=== PATIENT | female | born 1945 | race Caucasian/White ===

== ENCOUNTER 2024-04-02 09:46 | Inpatient (IN) | payer MEDICARE, SELFPAY ==
[2024-04-02] VITALS (32 sets, daily range): BP systolic 119–199; BP diastolic 57–141; PULSE 49–104; RESP 12–21; TEMP 35.2–37.7; O2SAT 92–100; BMI 26.4; BMI 25.4
--- NOTE | 2024-04-02 10:02 | CT_ITS ---
EXAM: CT HEAD WITHOUT INTRAVENOUS CONTRAST CLINICAL INDICATION: unresponsive TECHNIQUE: Multiple axial images were obtained of the head without intravenous contrast. This CT exam was performed using one or more of the following dose reduction techniques: automated exposure control, adjustment of the mA and/or kV according to patient size, and/or use of iterative reconstruction technique. COMPARISON: No relevant prior studies available. FINDINGS: BRAIN AND EXTRA-AXIAL SPACES: No hemorrhage or mass effect. No acute ischemia. Areas of diminished white matter density noted within both cerebral hemispheres suggestive of chronic microvascular change. Prominence of the cortical sulci and ventricles related to volume loss change. Basal cisterns are patent. BONES/JOINTS: Normal calvarium. SINUSES: No acute sinusitis. MASTOID AIR CELLS: Normal. Clear. CT/Brain/Head without Contrast IMPRESSION: 1. No acute intracranial abnormality. 2. Senescent changes. Electronically Signed: Kurtis Jones MD at 12:03 EST ,
--- NOTE | 2024-04-02 10:02 | EKG12_ITS ---
Test Reason : UNRESP Blood Pressure : */* mmHG Vent. Rate : 65 BPM Atrial Rate : 65 BPM P-R Int : 196 ms QRS Dur : 90 ms QT Int : 494 ms P-R-T Axes : 115 46 29 degrees QTcB Int : 513 ms Sinus rhythm with Premature supraventricular complexes Nonspecific ST and T wave abnormality Prolonged QT Abnormal ECG Confirmed by HAKAN MCFADDEN, PEDRO ([id number]), film editor BETHANY EGAN ([id number]) on 04/04/2024 9:39:58 AM Referred By: Confirmed By: PEDRO MCCLENDON MD
[2024-04-02 10:10] LABS: Allen Test Positive; Base Excess 7 mmol/L (-2 to +2); Bicarbonate 30.1 mmol/L (22-26); Blood Gas Specimen Type ART; Mode Not entered; O2 Delivery Device Cannula; PO2 99 mmHG (75-100); SITE L Radial; SO2 98 % (95-99); Total Carbon Dioxide 31 mmol/L; pCO2 40.6 mmHg (35-45); pH 7.48 (7.35-7.45)
[2024-04-02] MEDS: Rocuronium Bromide 50 MG/5 ML Vial IV (10:13)
[2024-04-02] MEDS: Propofol 10MG/Ml 1,000 MG/100 ML Bottle 4.5 MG CONT INF (10:13)
[2024-04-02] MEDS: Etomidate 20 MG/10 ML Vial IV (10:13)
[2024-04-02 10:32] LABS: Absolute Lymphocyte Count 0.74 X10^3/uL (0.83-4.51); Absolute Neutrophil Count 2.4 X10^3/uL (2.0-7.7); Basophil% 2.2 % (0-1); Eosinophil# 1.05 X10^3/uL; Eosinophils% 22.6 % (0-5); Hematocrit 37.9 % (37-47); Hemoglobin 11.7 g/dL (12.0-15.0); Lymphocyte # 0.74 X10^3/ul (0.83-4.51); Lymphocyte % 15.9 % (19-41); Mean Corp Hgb Conc 30.9 g/dL (32-36); Mean Corpuscular Hgb 27.1 pg (27.0-32.0); Mean Corpuscular Volume 87.9 fL (81-99); Mean Platelet Vol. 12.3 fl (6.2-12.0); Monocyte# 0.26 X10^3/uL; Monocyte% 5.6 % (0-10); NRBC Flagged by Analyzer 0 % (0-5); Neutrophil # 2.44 X10^3/uL (2.7-7.7); Neutrophil % 52.6 % (47-70); POSITIVE COUNT YES; Platelet Count 76 K/mm3 (150-450); RBC Distribution Width CV 17.8 % (11.6-14.6); RBC Distribution Width SD 56.8 fl (35.1-43.9); Red Blood Count 4.31 M/mm3 (4.2-5.4); White Blood Count 4.6 K/mm3 (4.4-11.0)
[2024-04-02 10:34] LABS: International Normalized Ratio 1.1; Prothrombin Time (Protime)PT. 13.7 SECONDS (11.7-14.9)
[2024-04-02 10:35] LABS: Partial Thromboplast Time 42.2 Seconds (24.1-36.2)
--- NOTE | 2024-04-02 10:37 | RAD_ITS ---
EXAM: XR CHEST, 1 VIEW CLINICAL INDICATION: intubation TECHNIQUE: Frontal view of the chest. COMPARISON: No relevant prior studies available. FINDINGS: LUNGS AND PLEURAL SPACES: Central pulmonary densities which may represent pneumonia or pulmonary edema. Atelectatic changes of the left lower lobe. Question small bilateral pleural effusions. HEART: Normal heart size. MEDIASTINUM: No mediastinal or hilar mass. BONES/JOINTS: No acute abnormality. TUBES, LINES AND DEVICES: The endotracheal tube (ETT) is in satisfactory position with tip 2.0 cm above the flora. Dialysis catheter extends to the cavoatrial junction. Enteric tube extends into the stomach. RAD/Chest 1 View (Portable) IMPRESSION: Bilateral pulmonary opacities consistent with pneumonia and/or pulmonary edema. Electronically Signed: Kurtis Jones MD at 11:15 EST ,
[2024-04-02 10:40] LABS: Bacteria 0 SEEN /hpf (None Seen); Mucous, Urine 0 SEEN /hpf (<or=2+); Squamous Epithelial Cells - UA 0 SEEN /hpf (5-10); White Blood Cells 0 SEEN /hpf (0-5)
--- NOTE | 2024-04-02 10:42 | EX.ED.DYSGE1 ---
HPI History of Present Illness Chief Complaint: Unresponsive Informant: EMS and SNF Narrative Narrative: 78-year-old female presenting to the emergency room from SNF chief complaint of being unresponsive. group home reports that the patient is a dialysis patient. She is currently being treated for C. difficile infection with vancomycin. Patient was reportedly unresponsive when they found her this morning. EMS notes that she is withdraws from pain. They note some abdominal breathing. No reported fevers. There is no report of missed dialysis. After disposition and workup in the emergency department family arrives and tells me that she has seemed to be more confused this week. She is believing that she was being taken out of the long term at states that that was not the case that she has not been participating with physical therapy. They state that she has been admitted several times to [facility] for fever and hypertension after dialysis treatments. They state that this is where she contracted C. difficile due to the antibiotics. They tell me that she is a DNR not a full code. However the order from the long term and the paperwork that came with her clearly state full code. PFSH PFS Home Medications ?Medication ?Instructions ?Recorded ?Last Taken ?Type atorvastatin 20 mg tablet 20 mg PO DAILY CHOLESTEROL 04/02/24 04/01/24 History carvedilol 6.25 mg tablet 6.25 mg PO BID HYPERTENSION 04/02/24 04/02/24 History cetirizine 10 mg tablet (24Hour 10 mg PO DAILY ALLERGIES 04/02/24 04/02/24 History Allergy) famotidine 20 mg tablet 20 mg PO BID GERD 04/02/24 04/02/24 History fluticasone propionate 50 2 spray intranasal DAILY PRN 04/02/24 04/02/24 History mcg/actuation nasal allergy symptoms spray,suspension (24 Hour Allergy Relief) gabapentin 100 mg capsule 200 mg PO TID NEUROPATHY 04/02/24 04/02/24 History hydralazine 50 mg tablet 50 mg PO TID HYPERTENSION 04/02/24 04/02/24 History vancomycin 125 mg capsule 125 mg PO Q6H C DIFF 04/02/24 04/02/24 History (Vancocin) vitamin B complex-vitamin C-folic 1 tab PO DAILY SUPPLEMENT 04/02/24 04/02/24 History acid 0.8 mg tablet (Dialyvite 800) Allergy/AdvReac Type Severity Reaction Status Date / Time amlodipine Allergy Unknown PT UNABLE Verified 04/02/24 09:49 TO RESPOND-NEEDS F/U Social History Smoking Status: Unknown if ever smoked ROS ROS ED Review of Systems ROS Unobtainable: due to mental status EXAM Physical Exam Const Vital Signs: 04/02/24 09:48 04/02/24 09:48 04/02/24 09:55 Temperature 95.3 F L 96.2 F L Temperature Source Temporal Core Pulse Rate 56 L 104 H Respiratory Rate 21 H 14 Respiratory Effort Labored Accessory Muscle Use Respiratory Pattern Tachypnea Blood Pressure 186/141 H 192/89 H Blood Pressure Mean 156 123 Pulse Ox 100 99 Oxygen Delivery Method Nasal Cannula Mechanical Ventilator Oxygen Flow Rate (L/min) 4 Fraction of Inspired Oxygen (FIO2) 04/02/24 10:02 04/02/24 10:13 04/02/24 10:48 Temperature Temperature Source Pulse Rate 71 64 Respiratory Rate 14 16 Respiratory Effort Respiratory Pattern Blood Pressure 199/105 H Blood Pressure Mean 136 Pulse Ox 99 96 Oxygen Delivery Method Nasal Cannula Mechanical Ventilator Oxygen Flow Rate (L/min) 4 Fraction of Inspired Oxygen (FIO2) 35 04/02/24 10:55 04/02/24 11:00 04/02/24 11:00 Temperature 96.4 F L 96.1 F L Temperature Source Core Core Pulse Rate 56 L 55 L 61 Respiratory Rate 16 16 16 Respiratory Effort Respiratory Pattern Blood Pressure 199/105 H 175/73 H 175/73 H Blood Pressure Mean 136 107 107 Pulse Ox 96 96 96 Oxygen Delivery Method Mechanical Ventilator Mechanical Ventilator Mechanical Ventilator Oxygen Flow Rate (L/min) Fraction of Inspired Oxygen (FIO2) 04/02/24 11:31 04/02/24 12:00 04/02/24 12:15 Temperature 96.2 F L Temperature Source Core Pulse Rate 67 61 Respiratory Rate 15 16 Respiratory Effort Respiratory Pattern Blood Pressure 161/92 H 161/92 H Blood Pressure Mean 115 115 Pulse Ox 95 92 Oxygen Delivery Method Mechanical Ventilator Oxygen Flow Rate (L/min) Fraction of Inspired Oxygen (FIO2) 25 04/02/24 12:15 Temperature Temperature Source Pulse Rate Respiratory Rate Respiratory Effort Respiratory Pattern Blood Pressure Blood Pressure Mean Pulse Ox Oxygen Delivery Method Oxygen Flow Rate (L/min) Fraction of Inspired Oxygen (FIO2) 35 Positive well nourished and well developed General Appearance ED: well developed and NAD HEENT Reports normocephalic, head/scalp atraumatic and moist mucous membranes Eyes PERRL Eyes Narrative: Pupils are 4 mm reactive to light bilateral Neck no lymphadenopathy, supple and no JVD Chest Wall Chest Narrative: Dialysis port to the right chest Resp clear to auscultation bilaterally Resp Narrative: Patient seems to be using the abdominal muscles to breathe. However she does not appear significantly tachypneic and is not hypoxic on her chronic nasal cannula. Cardio regular rate, regular rhythm and no murmurs GI normal to inspection, nondistended, normoactive bowel sounds and non-tender Palpation: soft Back/Spine no CVA tenderness and normal ROM Extremity normal to inspection General Extremety ED: Negative for edema General Extremity: Negative for edema Neuro Neuro Narrative: Patient withdraws to sternal rub. No response to voice or light touch. Her hands seem to be moving rhythmically with the continuous degree of dorsiflexion of the feet and plantarflexion of the toes. However I would not characterize it is definitive seizure activity. I do not see any other signs of seizure. The hands appear to have a slight flexion rhythm to them. They are not rigid. There is minimal but present gag reflex. Psych Psych Narrative: Unable to assess Skin no rashes or lesions noted and no wounds MDM MDM MDM Narrative Medical decision making narrative: Differential diagnosis includes but not limited to intracranial hemorrhage stroke press sepsis uremia acid-base disturbance dehydration electrolyte abnormality acute coronary syndrome press brainstem infarct ABG was obtained which shows a pH of 7.478 pCO2 40.6 PaO2 98.5 HCO3 30.1. This was preintubation. Accu-Chek of 112. Patient underwent rapid sequence intubation using etomidate and rocuronium. A endotracheal tube was placed on the first attempt without any difficulty secured at about 24 cm. Nursing had difficulty placing OG tube. I was able to successfully pass it without difficulty and secured into place. Auscultation confirms placement of both tubes. My independent interpretation of the plain films of the chest is adequate placement of endotracheal tube and OG tube. There is a fullness of the hilum bilaterally. Possible small left pleural effusion. Urinalysis shows no acute infection. She is making small amounts of urine. White count 4.6 hemoglobin 11.7 platelet count of 76 coags showed a PTT of 42.2 potassium is 3 sodium 135 BUN 24 creatinine 3.82 glucose 122 LFTs within normal limits Patient was placed on propofol drip postintubation. Her blood pressures continued to be high and labetalol was ordered. CT of the brain demonstrates no acute findings. CT of the chest demonstrates some pulmonary edema pleural effusion. The endotracheal tube has migrated and we will pull back. My independent interpretation of the repeat chest x-ray is adequate positioning of the endotracheal tube and OG. I am no longer seeing the feet and hand movements that we saw when she first came in. Her blood pressure is down. I am not seeing an obvious cause for the patient's symptomology of altered mental status with significant hypertension. Plan of care will be admission into hospital. Does not appear that she needs emergent dialysis. History & Record Review Discussion w/independent historian: EMS personnel and Other (SNF) Lab Data Attestation: I reviewed the patient's lab results. Labs: Laboratory Results - last 24 hr 04/02/24 04/02/24 04/02/24 09:54 10:12 10:30 WBC 4.6 RBC 4.31 Hgb 11.7 L Hct 37.9 MCV 87.9 MCH 27.1 MCHC 30.9 L RDW Std Deviation 56.8 H RDW Coeff of Mindy 17.8 H Plt Count 76 L MPV 12.3 H Immature Gran % (Auto) 1.100 H Neut % (Auto) 52.6 Lymph % (Auto) 15.9 L [place] % (Auto) 5.6 Eos % (Auto) 22.6 H Baso % (Auto) 2.2 H Absolute Neuts (auto) 2.4 Absolute Lymphs (auto) 0.74 L Nucleated RBC % 0 Differential Comment SCANNED PT 13.7 INR 1.1 APTT 42.2 H Sodium 135 L Potassium 3.0 L Chloride 98 Carbon Dioxide 30.0 Anion Gap 8 BUN 24 H Creatinine 3.82 H Estim Creat Clear Calc 12.51 Est GFR (MDRD) Af Amer 15 L Est GFR (MDRD) Non-Af 12 L BUN/Creatinine Ratio 6.3 L Glucose 122 H Lactic Acid 1.1 Calcium 9.7 Total Bilirubin 0.50 Direct Bilirubin 0.20 AST 24 ALT 16 Alkaline Phosphatase 73 Total Creatine Kinase 16 L Troponin I High Sens 23 Total Protein 8.0 Albumin 2.8 L Globulin 5.2 H Triglycerides 180 Urine Color Yellow Urine Clarity Clear Urine pH 8.0 Ur Specific [place] 1.015 Urine Protein 100 H Urine Glucose (UA) Normal Urine Ketones Negative Urine Occult Blood 250 H Urine Nitrite Negative Urine Bilirubin Negative Urine Urobilinogen Normal Ur Leukocyte Esterase Negative Urine RBC 25-50 SEEN Urine WBC 0 SEEN Ur Squamous Epith Cells 0 SEEN Urine Bacteria 0 SEEN Urine Mucus 0 SEEN POC Glucose 112 H ABG Data ABG results: ABG 04/02/24 10:06 Specimen Type ART Sample Site L Radial pH 7.48 H Bicarbonate Actual 30.1 H Total CO2 31 Base Excess 7 H O2 Saturation 98 O2 % 4.0 ABG pCO2 40.6 ABG pO2 99 Phillip Test Positive O2 Delivery Device Cannula Vent Mode Not entered Radiography Diagnostic Testing: Clinical Impression(s) from Imaging Studies Brain CT 04/02/24 10:02 IMPRESSION: 1. No acute intracranial abnormality. 2. Senescent changes. Electronically Signed: Kurtis Jones MD at 12:03 EST , Chest X-Ray 04/02/24 10:37 IMPRESSION: Bilateral pulmonary opacities consistent with pneumonia and/or pulmonary edema. Electronically Signed: Kurtis Jones MD at 11:15 EST , Chest CT 04/02/24 10:46 IMPRESSION: 1. CHF with pulmonary edema. 2. Malposition of the endotracheal tube. Electronically Signed: Kurtis Jones MD at 12:07 EST , ADDENDUM: 04/02/24 1222 IMPRESSION: 1. CHF with pulmonary edema. 2. Malposition of the endotracheal tube. N.B. : The above Results were Read Back by Kurtis Jones MD to Isaias Wallis, , , and understanding confirmed on 04/02/2024 12:15:26 (ET). Electronically Signed: Kurtis Jones MD at 12:07 EST , EKG Initial EKG: Attestation: I personally reviewed and interpreted this EKG as follows: Comments: Sinus rhythm ventricular rate of 65 bpm Management Discussion w/another healthcare provider: Hospitalist and Radiologist (Dr. Allen) Critical Care Time Critical Care Time: Yes Critical care time (excluding procedures): 30-74 minutes (35 min), Including time spent:, Discussing w/Patient &/or Family/Event Marketing Coordinator, Discussing w/Consultants, Arranging Admission or Transfer and Performing Direct Patient Care at Bedside Discharge Plan Triage Chief Complaint: Unresponsive ED Provider: Isaias Wallis Dx/Rx/DC Orders Primary Care Provider: Alex Avila
--- NOTE | 2024-04-02 10:46 | CT_ITS ---
We are attempting to reach an attending provider to discuss findings. An addendum with communication details will be sent when the communication is complete. EXAM: CT CHEST WITHOUT INTRAVENOUS CONTRAST CLINICAL INDICATION: abnormal chest xray TECHNIQUE: Helically acquired images were obtained of the chest without intravenous contrast. This CT exam was performed using one or more of the following dose reduction techniques: automated exposure control, adjustment of the mA and/or kV according to patient size, and/or use of iterative reconstruction technique. COMPARISON: No relevant prior studies available. FINDINGS: LUNGS AND PLEURAL SPACES: Diffuse interstitial edema. Small bilateral pleural effusions associated with compression atelectasis of the lower lobes. No mass. No pneumothorax. HEART: Mild cardiomegaly. Small moderate sized pericardial effusion. MEDIASTINUM: Normal. No mediastinal or hilar adenopathy. Esophagus is unremarkable. No hiatal hernia. BONES/JOINTS: No suspicious lytic or blastic abnormality. VASCULATURE: Normal. Thoracic aorta is non-dilated. STOMACH AND BOWEL: Enteric stomach. TUBES, LINES AND DEVICES: Tip of the ET tube extends into the proximal portion of the right main bronchus and should be withdrawn [address]/Chest without Contrast IMPRESSION: 1. CHF with pulmonary edema. 2. Malposition of the endotracheal tube. Electronically Signed: Kurtis Jones MD at 12:07 EST ,
--- NOTE | 2024-04-02 10:46 | CM.ED ---
Social Work: Unsuccessful phone contact with patient's daughters Blanka Skelton and Evelin Skelton . fiber glass worker left a message with her name and number and requested a return call. Sarah Tony, IRRIGATING PUMP OPERATOR, RADIOLOGY SCHEDULER
[2024-04-02 10:49] LABS: AST(SGOT) 24 U/L (15-37); Alanine Aminotransfer ALT/SGPT 16 U/L (13-56); Albumin, Serum 2.8 g/dL (3.2-5.0); Alkaline Phosphatase 73 U/L (45-117); Anion Gap 8 (5-15); BUN 24 mg/dL (7-18); BUN/Creat Ratio 6.3 RATIO (10-20); Calcium,Total 9.7 mg/dL (8.5-10.1); Chloride 98 mmol/L (98-107); Creatinine, Serum 3.82 mg/dL (0.55-1.02); EST Glomerular Filtration Rate 12 mL/min (>60); Est Glom Filt Rate - Afr Amer 15 mL/min (>60); Estimated Creatinine Clearance 12.51 ml/min; Globulin 5.2 g/dL (2.2-4.2); Glucose 122 mg/dL (74-106); Sodium Level 135 mmol/L (136-145); Troponin-I HS 23 pg/mL (3.0-54.0)
[2024-04-02 10:50] LABS: Lactic Acid 1.1 mmol/L (0.4-1.9)
[2024-04-02 10:51] LABS: Color, Urine Yellow (Yellow); Glucose, Dipstick Normal (Normal); Ketone-Dipstick Negative (Negative); Leukocyte Esterase-Dipstick Negative /ul (Negative); Nitrite-Dipstick Negative (Negative); Occult Blood-Urine 250 /ul (Negative); Protein-Dipstick 100 mg/dl (Negative); Specific Gravity, Urine 1.015 (1.002-1.030); Urine Bilirubin Dipstick Negative (Negative); Urine Clarity Clear (Clear); Urine Urobilinogen Normal (Normal)
[2024-04-02 10:53] LABS: Differential Indicated SCAN CRITERIA MET
[2024-04-02 10:54] LABS: Differential Comment SCANNED
[2024-04-02 10:56] LABS: CPK Total, Creatine Kinase 16 U/L (26-192); Triglycerides 180 mg/dL
[2024-04-02 10:57] LABS: Red Blood Cells-Urine 25-50 SEEN /hpf (0-5)
--- NOTE | 2024-04-02 10:57 | CM.ED ---
Patient's daughter Blanka returned social and political studies professor's phone call. general foundry worker told her that she wanted to make sure that she was aware that her mother was brought to the hospital and she stated she was notified however didn't know what was going on. general foundry worker did not provide any details but did ask the daughter to come to the ED which she stated she would. Blanka indicated she was at an 11:00 appointment and would come to the hospital right after. Sarah Tony, BEER MERCHANT, PLASTER BLOCK LAYER
[2024-04-02 11:03] LABS: Bedside Glucose 112 mg/dL (74-106)
[2024-04-02] MEDS: Labetalol (Prefilled) 20 MG/4 ML Vial IV ×2 (11:03→16:12)
--- NOTE | 2024-04-02 12:42 | RAD_ITS ---
EXAM: XR CHEST, 1 VIEW CLINICAL INDICATION: OG tube placement/ETT readjustment TECHNIQUE: Frontal view of the chest. COMPARISON: No relevant prior studies available. FINDINGS: LUNGS AND PLEURAL SPACES: Persistent central pulmonary opacification noted bilaterally as well as consolidation/atelectasis of the left lower lobe. Suspect small bilateral pleural effusions. HEART: Normal heart size. MEDIASTINUM: No mediastinal or hilar mass. BONES/JOINTS: No acute abnormality. TUBES, LINES AND DEVICES: The endotracheal tube (ETT) is in satisfactory position with tip 2.5 cm above the flora. Right internal jugular central venous catheter tip in the distal superior vena cava. Enteric tube extends into the stomach. RAD/Chest 1 View IMPRESSION: Persistent bilateral pneumonia and/or pulmonary edema. Persistent left lower lobe consolidation/atelectasis. Electronically Signed: Kurtis Jones MD at 13:25 EST ,
--- NOTE | 2024-04-02 12:44 | PCM.HP.STD ---
HPI - General General Date of Admission: 04/02/24 Date of Service: 04/02/24 Chief Complaint: Was found unresponsive in snf HPI Narrative STEFFANY HELMS, is a 78 F was brought by EMS for being unresponsive in snf. As per the daughter who is present in ED, she said snf informed that she is unresponsive and is being taken to the [facility] ED. In ED, her BP was high 199/105, MAP 136, heart rate 50s, 99 on 4 L of oxygen. She was intubated as she could not protect her airways. She was tachypneic in ED before intubation As per the daughter, she has been confused for last couple days in snf. She was saying that she wants to go home with some intermittent hallucinations snf. She gets fever after dialysis on Thursday and Thursday. She was dialyzed yesterday. She was admitted for 2 and half weeks in [facility] and intermittent fever but infectious workup was negative. When I saw the patient send already intubated therefore history mainly obtained from her daughter. She makes some urine. UA not suggestive of infectious workup. Labs and imaging discussed in assessment and plan. [facility] Home Medications ?Medication ?Instructions ?Recorded ?Last Taken ?Type atorvastatin 20 mg tablet 20 mg PO DAILY CHOLESTEROL 04/02/24 04/01/24 History carvedilol 6.25 mg tablet 6.25 mg PO BID HYPERTENSION 04/02/24 04/02/24 History cetirizine 10 mg tablet (24Hour 10 mg PO DAILY ALLERGIES 04/02/24 04/02/24 History Allergy) famotidine 20 mg tablet 20 mg PO BID GERD 04/02/24 04/02/24 History fluticasone propionate 50 2 spray intranasal DAILY PRN 04/02/24 04/02/24 History mcg/actuation nasal allergy symptoms spray,suspension (24 Hour Allergy Relief) gabapentin 100 mg capsule 200 mg PO TID NEUROPATHY 04/02/24 04/02/24 History hydralazine 50 mg tablet 50 mg PO TID HYPERTENSION 04/02/24 04/02/24 History vancomycin 125 mg capsule 125 mg PO Q6H C DIFF 04/02/24 04/02/24 History (Vancocin) vitamin B complex-vitamin C-folic 1 tab PO DAILY SUPPLEMENT 04/02/24 04/02/24 History acid 0.8 mg tablet (Dialyvite 800) Allergy/AdvReac Type Severity Reaction Status Date / Time amlodipine Allergy Unknown PT UNABLE Verified 04/02/24 09:49 TO RESPOND-NEEDS F/U Social History Smoking Status: Unknown if ever smoked ROS Review of Systems ROS Unobtainable: due to encephalopathy and due to endotracheal tube Vital Signs Vital Signs Vital Signs: 04/02/24 09:48 04/02/24 09:48 04/02/24 09:55 Temperature 95.3 F L 96.2 F L Temperature Source Temporal Core Pulse Rate 56 L 104 H Respiratory Rate 21 H 14 Respiratory Effort Labored Accessory Muscle Use Respiratory Pattern Tachypnea Blood Pressure 186/141 H 192/89 H Blood Pressure Mean 156 123 Pulse Ox 100 99 Oxygen Delivery Method Nasal Cannula Mechanical Ventilator Oxygen Flow Rate (L/min) 4 Fraction of Inspired Oxygen (FIO2) 04/02/24 10:02 04/02/24 10:13 04/02/24 10:48 Temperature Temperature Source Pulse Rate 71 64 Respiratory Rate 14 16 Respiratory Effort Respiratory Pattern Blood Pressure 199/105 H Blood Pressure Mean 136 Pulse Ox 99 96 Oxygen Delivery Method Nasal Cannula Mechanical Ventilator Oxygen Flow Rate (L/min) 4 Fraction of Inspired Oxygen (FIO2) 35 04/02/24 10:55 04/02/24 11:00 04/02/24 11:00 Temperature 96.4 F L 96.1 F L Temperature Source Core Core Pulse Rate 56 L 55 L 61 Respiratory Rate 16 16 16 Respiratory Effort Respiratory Pattern Blood Pressure 199/105 H 175/73 H 175/73 H Blood Pressure Mean 136 107 107 Pulse Ox 96 96 96 Oxygen Delivery Method Mechanical Ventilator Mechanical Ventilator Mechanical Ventilator Oxygen Flow Rate (L/min) Fraction of Inspired Oxygen (FIO2) 04/02/24 11:31 04/02/24 12:00 04/02/24 12:15 Temperature 96.2 F L Temperature Source Core Pulse Rate 67 61 Respiratory Rate 15 16 Respiratory Effort Respiratory Pattern Blood Pressure 161/92 H 161/92 H Blood Pressure Mean 115 115 Pulse Ox 95 92 Oxygen Delivery Method Mechanical Ventilator Oxygen Flow Rate (L/min) Fraction of Inspired Oxygen (FIO2) 25 04/02/24 12:15 Temperature Temperature Source Pulse Rate Respiratory Rate Respiratory Effort Respiratory Pattern Blood Pressure Blood Pressure Mean Pulse Ox Oxygen Delivery Method Oxygen Flow Rate (L/min) Fraction of Inspired Oxygen (FIO2) 35 Weight Weight: 163 lb 12.855 oz Body Mass Index (BMI) 26.4 Physical Exam Narrative General: Was confused. Currently intubated on propofol. HEENT: Atraumatic, Normocephalic. Sedated. Oral: ETT Neck: Supple, No JVD, Negative Carotid Bruits Chest wall/Lungs: Air entry diminished in bilateral lung bases. No crepitation/rhonchi Cardiovascular: Sinus rhythm, Normal S1, Normal S2, systolic murmur Abdomen: Bowel Sounds Present, Soft, Non Tender, Non-Distended :Osullivan catheter with clear urine, No dysuria. No renal angle tenderness. No suprapubic tenderness. Extremities: No significant edema. Capillary Refill Less than 3 Seconds Skin: No rashes, No breakdown Musculoskeletal: No Tenderness to Palpation of Joints or Extremities. Cannot evaluate ROM. Neurological: Sedated was unresponsive. Psych/Mental Status: Sedated Results Lab / Micro Data 04/02/24 10:12 04/02/24 10:12 Labs: Laboratory Results - last 24 hr 04/02/24 09:54: POC Glucose 112 H 04/02/24 10:12: WBC 4.6, RBC 4.31, Hgb 11.7 L, Hct 37.9, MCV 87.9, MCH 27.1, MCHC 30.9 L, RDW Std Deviation 56.8 H, RDW Coeff of Mindy 17.8 H, Plt Count 76 L, MPV 12.3 H, Immature Gran % (Auto) 1.100 H, Neut % (Auto) 52.6, Lymph % (Auto) 15.9 L, [place] % (Auto) 5.6, Eos % (Auto) 22.6 H, Baso % (Auto) 2.2 H, Absolute Neuts (auto) 2.4, Absolute Lymphs (auto) 0.74 L, Nucleated RBC % 0, Differential Comment SCANNED, PT 13.7, INR 1.1, APTT 42.2 H, Sodium 135 L, Potassium 3.0 L, Chloride 98, Carbon Dioxide 30.0, Anion Gap 8, BUN 24 H, Creatinine 3.82 H, Estim Creat Clear Calc 12.51, Est GFR (MDRD) Af Amer 15 L, Est GFR (MDRD) Non-Af 12 L, BUN/Creatinine Ratio 6.3 L, Glucose 122 H, Lactic Acid 1.1, Calcium 9.7, Total Bilirubin 0.50, Direct Bilirubin 0.20, AST 24, ALT 16, Alkaline Phosphatase 73, Total Creatine Kinase 16 L, Troponin I High Sens 23, Total Protein 8.0, Albumin 2.8 L, Globulin 5.2 H, Triglycerides 180 04/02/24 10:30: Urine Color Yellow, Urine Clarity Clear, Urine pH 8.0, Ur Specific [place] 1.015, Urine Protein 100 H, Urine Glucose (UA) Normal, Urine Ketones Negative, Urine Occult Blood 250 H, Urine Nitrite Negative, Urine Bilirubin Negative, Urine Urobilinogen Normal, Ur Leukocyte Esterase Negative, Urine RBC 25-50 SEEN, Urine WBC 0 SEEN, Ur Squamous Epith Cells 0 SEEN, Urine Bacteria 0 SEEN, Urine Mucus 0 SEEN ABG Data ABG results: ABG 04/02/24 10:06 Specimen Type ART Sample Site L Radial pH 7.48 H Bicarbonate Actual 30.1 H Total CO2 31 Base Excess 7 H O2 Saturation 98 O2 % 4.0 ABG pCO2 40.6 ABG pO2 99 Phillip Test Positive O2 Delivery Device Cannula Vent Mode Not entered Imaging Radiology Impression Brain CT 04/02/24 10:02 IMPRESSION: 1. No acute intracranial abnormality. 2. Senescent changes. Electronically Signed: Kurtis Jones MD at 12:03 EST , Chest X-Ray 04/02/24 10:37 IMPRESSION: Bilateral pulmonary opacities consistent with pneumonia and/or pulmonary edema. Electronically Signed: Kurtis Jones MD at 11:15 EST , Chest CT 04/02/24 10:46 IMPRESSION: 1. CHF with pulmonary edema. 2. Malposition of the endotracheal tube. Electronically Signed: Kurtis Jones MD at 12:07 EST , ADDENDUM: 04/02/24 1222 IMPRESSION: 1. CHF with pulmonary edema. 2. Malposition of the endotracheal tube. N.B. : The above Results were Read Back by Kurtis Jones MD to Isaias Wallis, , DO, and understanding confirmed on 04/02/2024 12:15:26 (ET). Electronically Signed: Kurtis Jones MD at 12:07 EST , Assessment & Plan Assessment/Plan (1) Unresponsive: PLAN: Plan This 78-year-old female admitted with unresponsive episode. 1. Subacute encephalopathy progressed to unresponsive episode, exact etiology unclear: Patient is being admitted in ICU. Intubated on CMV mode ventilator to protect airway. FiO2 35%. MRI brain and EEG ordered. U tox ordered. CT brain does not show acute intracranial abnormality but salicin chest disease. 2. Mild hypoxia possible chronic hypoxic respiratory failure with suspicion of possible pneumonia/pulmonary edema, intubated on ventilator to protect airway: Patient patient on oxygen as per daughter does not know exact amount/dose. Patient was tachypneic on 4 L of oxygen. Chest x-ray individually reviewed which shows bilateral pulmonary alveolar opacity mainly in lower lobes possible pulmonary edema or pneumonia. BNP ordered. Troponin normal. Suspicion of possible aspiration pneumonia therefore started on IV Unasyn, renally dosed. Wool Supplier consulted for vent management neurologist consulted. 3. ESRD on MTTF: Director Airport Operations is consulted. Patient on Thursday and Thursday 2-hour dialysis session management 4. Intermittent fever after dialysis: Patient was admitted in [facility] in February for about 2 and half weeks. Try to get medical record. If patient spikes fever will need ID. 4. Recent C. difficile on oral vancomycin: Patient on vancomycin 125 p.o. Q6 hourly from snf. Continued. 6. Essential accelerated hypertension: Blood pressure was high 192/89, 199/185. Most recent 155/71. Labetalol as needed. Living will/advanced directive/end of life care: Patient does have living will or advanced directive. After discussion of benefits/risks procedures involved with full code, DNR CC arrest and DNR CC, the patient's daughter said she is the power of mergers and acquisitions attorney for health. She does not want CPR but okay with intubation ventilator therefore DNR CC arrest with intubation Patient doesn't want artificial life support including chest compression/CPR, central venous catheter, vasopressor and DC shock if needed Total time spent in [id number] encounter in discussion of advanced directive 17 minutes. Laboratory Results 04/02/24 09:54: POC Glucose 112 H 04/02/24 10:06: Specimen Type ART, Sample Site L Radial, pH 7.48 H, Bicarbonate Actual 30.1 H, Total CO2 31, Base Excess 7 H, O2 Saturation 98, O2 % 4.0, ABG pCO2 40.6, ABG pO2 99, Phillip Test Positive, O2 Delivery Device Cannula, Vent Mode Not entered 04/02/24 10:12: WBC 4.6, RBC 4.31, Hgb 11.7 L, Hct 37.9, MCV 87.9, MCH 27.1, MCHC 30.9 L, RDW Std Deviation 56.8 H, RDW Coeff of Mindy 17.8 H, Plt Count 76 L, MPV 12.3 H, Immature Gran % (Auto) 1.100 H, Neut % (Auto) 52.6, Lymph % (Auto) 15.9 L, [place] % (Auto) 5.6, Eos % (Auto) 22.6 H, Baso % (Auto) 2.2 H, Absolute Neuts (auto) 2.4, Absolute Lymphs (auto) 0.74 L, Nucleated RBC % 0, Differential Comment SCANNED, PT 13.7, INR 1.1, APTT 42.2 H, Sodium 135 L, Potassium 3.0 L, Chloride 98, Carbon Dioxide 30.0, Anion Gap 8, BUN 24 H, Creatinine 3.82 H, Estim Creat Clear Calc 12.51, Est GFR (MDRD) Af Amer 15 L, Est GFR (MDRD) Non-Af 12 L, BUN/Creatinine Ratio 6.3 L, Glucose 122 H, Lactic Acid 1.1, Calcium 9.7, Total Bilirubin 0.50, Direct Bilirubin 0.20, AST 24, ALT 16, Alkaline Phosphatase 73, Total Creatine Kinase 16 L, Troponin I High Sens 23, Total Protein 8.0, Albumin 2.8 L, Globulin 5.2 H, Triglycerides 180 04/02/24 10:15: Sodium Pending, Potassium Pending, Chloride Pending, Carbon Dioxide Pending, Anion Gap Pending, BUN Pending, Creatinine Pending, Est GFR (MDRD) Af Amer Pending, Est GFR (MDRD) Non-Af Pending, BUN/Creatinine Ratio Pending, Glucose Pending, Calcium Pending, Phosphorus Pending, Magnesium Pending 04/02/24 10:30: Urine Color Yellow, Urine Clarity Clear, Urine pH 8.0, Ur Specific [place] 1.015, Urine Protein 100 H, Urine Glucose (UA) Normal, Urine Ketones Negative, Urine Occult Blood 250 H, Urine Nitrite Negative, Urine Bilirubin Negative, Urine Urobilinogen Normal, Ur Leukocyte Esterase Negative, Urine RBC 25-50 SEEN, Urine WBC 0 SEEN, Ur Squamous Epith Cells 0 SEEN, Urine Bacteria 0 SEEN, Urine Mucus 0 SEEN Clinical Impression(s) from Imaging Studies Brain CT 04/02/24 10:02 IMPRESSION: 1. No acute intracranial abnormality. 2. Senescent changes. Electronically Signed: Kurtis Jones MD at 12:03 EST , Chest X-Ray 04/02/24 10:37 IMPRESSION: Bilateral pulmonary opacities consistent with pneumonia and/or pulmonary edema. Electronically Signed: Kurtis Jones MD at 11:15 EST , Chest CT 04/02/24 10:46 IMPRESSION: 1. CHF with pulmonary edema. 2. Malposition of the endotracheal tube. Electronically Signed: Kurtis Jones MD at 12:07 EST , ADDENDUM: 04/02/24 1222 IMPRESSION: 1. CHF with pulmonary edema. 2. Malposition of the endotracheal tube. Chest X-Ray 04/02/24 12:42 IMPRESSION: Persistent bilateral pneumonia and/or pulmonary edema. Persistent left lower lobe consolidation/atelectasis. Charges/Coding Visit Charges Inpatient E&M: 24573 Init Hosp L3 Procedures Hospitalists Procedures: 89774 Advncd Care Plan 30 Min
[2024-04-02] MEDS: fentaNYL drip 100 ML 2.5 MCG CONT INF (14:46)
[2024-04-02 14:59] LABS: Allen Test Positive; Base Excess 6 mmol/L (-2 to +2); Bicarbonate 29.1 mmol/L (22-26); Blood Gas Specimen Type ART; Mode AC; O2 Delivery Device Adult Vent; PEEP 5; PO2 76 mmHG (75-100); RR 14; SITE L Radial; SO2 96 % (95-99); Total Carbon Dioxide 30 mmol/L; pCO2 38.5 mmHg (35-45); pH 7.49 (7.35-7.45)
[2024-04-02 15:27] LABS: Magnesium 2.1 mg/dL (1.6-2.6); Phosphorus 5.2 mg/dL (2.5-4.9)
[2024-04-02] MEDS: 0.9% Saline Lock 10 ML Syringe IV ×3 (17:12→23:30)
[2024-04-02] MEDS: Heparin Injection (Vial) 5,000 UNIT/ML VIAL 5000 UNIT SC ×2 (17:12→21:31)
[2024-04-02] MEDS: Atorvastatin Calcium 20 MG Tablet GT (17:13)
[2024-04-02] MEDS: Ampicillin/Sulbactam 3 GM in 0.9% Normal Saline (100mL MB+) 100 ML IV (17:13)
[2024-04-02 17:20] LABS: Amphetamine Urine VISTA NEGATIVE (<1000 ng/mL); Barbiturate Urine VISTA NEGATIVE (< 200 ng/mL); Benzodiazepine Urine VISTA NEGATIVE (< 200 ng/mL); Cocaine Urine VISTA NEGATIVE (< 300 ng/mL); Ecstacy Urine VISTA NEGATIVE (< 500 ng/mL); Methadone Urine VISTA NEGATIVE (< 300 ng/mL); PCP Urine VISTA NEGATIVE (< 25 ng/mL); THC Urine VISTA NEGATIVE (< 50 ng/mL); Vista UDS pH Range 7
--- NOTE | 2024-04-02 17:33 | CON.PCM.CC_ITS ---
HPI Consult Data Date of Consult: 04/02/24 HPI Narrative HPI Narrative: STEFFANY HELMS, is a 78 F who presents from a NH after being found unresponsive this morning, last seen well the night before. She is ESRD on maintenance HD and is not known to have missed any treatments. She was promptly intubated in the ED for airway protection anf is transp[orted to ICU for expectant management. She has not had any further instability since arrival in ICU. Of note she has a Living Will but per report the family understood that document to be a DNR order, thus are understandably confused by the events of the day. PFSH Home Medications ?Medication ?Instructions ?Recorded ?Last Taken ?Type atorvastatin 20 mg tablet 20 mg PO DAILY CHOLESTEROL 04/02/24 04/01/24 History carvedilol 6.25 mg tablet 6.25 mg PO BID HYPERTENSION 04/02/24 04/02/24 History cetirizine 10 mg tablet (24Hour 10 mg PO DAILY ALLERGIES 04/02/24 04/02/24 History Allergy) famotidine 20 mg tablet 20 mg PO BID GERD 04/02/24 04/02/24 History fluticasone propionate 50 2 spray intranasal DAILY PRN 04/02/24 04/02/24 History mcg/actuation nasal allergy symptoms spray,suspension (24 Hour Allergy Relief) gabapentin 100 mg capsule 200 mg PO TID NEUROPATHY 04/02/24 04/02/24 History hydralazine 50 mg tablet 50 mg PO TID HYPERTENSION 04/02/24 04/02/24 History vancomycin 125 mg capsule 125 mg PO Q6H C DIFF 04/02/24 04/02/24 History (Vancocin) vitamin B complex-vitamin C-folic 1 tab PO DAILY SUPPLEMENT 04/02/24 04/02/24 History acid 0.8 mg tablet (Dialyvite 800) Allergy/AdvReac Type Severity Reaction Status Date / Time amlodipine Allergy Unknown PT UNABLE Verified 04/02/24 09:49 TO RESPOND-NEEDS F/U Social History Smoking Status: Unknown if ever smoked ROS Review of Systems ROS Unobtainable: due to encephalopathy and due to endotracheal tube Objective Data Objective Data Vital Signs: Vital Signs Last response 3 Temperature 37.2 C 04/02/24 16:00 Temperature Source Core 04/02/24 16:00 Pulse Rate 52 L 04/02/24 17:00 Respiratory Rate 14 04/02/24 17:00 Respiratory Effort Labored, Accessory Muscle Use 04/02/24 09:48 Respiratory Pattern Tachypnea 04/02/24 09:48 Blood Pressure 157/67 H 04/02/24 17:00 Blood Pressure Mean 97 04/02/24 17:00 Blood Pressure Source Monitor 04/02/24 17:00 Blood Pressure Position Semi-Fowlers 04/02/24 17:00 Blood Pressure Location Left Leg 04/02/24 17:00 Pulse Ox 95 04/02/24 17:00 Oxygen Delivery Method Mechanical Ventilator 04/02/24 17:00 Oxygen Flow Rate (L/min) 4 04/02/24 10:02 Fraction of Inspired Oxygen (FIO2) 30 04/02/24 17:00 I&O: I&O Last 24 Hours 3 04/01/24 04/02/24 04/02/24 23:59 11:59 23:59 Intake Total 6.6 / 27.15 20.55 / 27.15 Output Total 275 / 275 Balance 6.6 / -247.85 -254.45 / -247.85 I&O: Total Stay 3 04/02/24 09:46 thru 04/02/24 16:00 Intake Total 27.15 Output Total 275 Balance -247.85 Current Meds Ordered / Administered: Current meds ordered / Administered 3 Generic Name Dose Route Start Last Admin Trade Name Freq PRN Reason Stop Dose Admin Acetaminophen 650 mg 04/02/24 14:31 Acetaminophen 325 Mg Tablet GT Q6H PRN PRN Pain 1-10 Or Fever>100.7 Albuterol/Ipratropium 3 ml 04/02/24 14:31 Ipratropium/Albuterol Sulfate 3 Ml Ampul.Neb INHALATION Q4H.RT PRN shortness of breath Atorvastatin Calcium 20 mg 04/02/24 14:31 04/02/24 17:13 Atorvastatin Calcium 20 Mg Tablet GT 20 mg DAILY LINDSEY Administration Carvedilol 6.25 mg 04/02/24 22:00 Carvedilol 6.25 Mg Tablet GT BID [facility] Protocol Famotidine 20 mg 04/03/24 10:00 Famotidine 20 Mg Tablet GT DAILY [facility] Heparin Sodium (Porcine) 5,000 unit 04/02/24 14:31 04/02/24 17:12 Heparin Injection (Vial) 5,000 Unit/Ml Vial SC 5,000 unit Q12 LINDSEY Administration Hydralazine HCl 10 mg 04/02/24 14:31 Hydralazine 20 Mg/Ml Vial IV Q4H PRN PRN SBP more than 180 mmHg Protocol Hydralazine HCl 50 mg 04/02/24 14:31 04/02/24 16:12 Hydralazine 50 Mg Tablet GT Not Given TID LINDSEY Protocol Propofol 1,000 mg in 100 mls @ 4.458 mls/hr 04/02/24 10:05 04/02/24 14:45 Diprivan CONT INF 10 mcg/kg/min .Q12H LINDSEY 4.5 mls/hr Titration Protocol 10 MCG/KG/MIN Fentanyl 100 mls @ 5 mls/hr 04/02/24 13:35 04/02/24 14:46 CONT INF 25 mcg/hr UD LINDSEY 2.5 mls/hr Administration Protocol 50 MCG/HR Ampicillin Sodium/Sulbactam 112 mls @ 150 mls/hr 04/02/24 14:31 04/02/24 17:13 Sodium 3 gm/ Sodium Chloride IV 150 mls/hr Q24 LINDSEY Administration Labetalol HCl 20 mg 04/02/24 14:31 04/02/24 16:12 Labetalol (Prefilled) 20 Mg/4 Ml Vial IV 20 mg Q4H PRN PRN Administration SBP >190 mmhg Sodium Chloride 10 - 40 ml 04/02/24 14:27 04/02/24 17:12 0.9% Saline Lock 10 Ml Syringe IV 20 ml UD PRN Administration SALINE FLUSH Physical Exam Const General Appearance: intubated Orientation / Consciousness: obtunded Exam Limitations: physical limitations HEENT normocephalic and head/scalp atraumatic Mouth: endotracheal tube in place and OG tube in place Eyes PERRL Neck General: normal visual inspection Resp normal respiratory effort Effort and Inspection: mechanically ventilated Lab / Micro Data Attestation: I reviewed the patient's lab results. 04/02/24 10:12 04/02/24 10:12 Labs: Laboratory Results - last 24 hr 04/02/24 09:54: POC Glucose 112 H 04/02/24 10:12: WBC 4.6, RBC 4.31, Hgb 11.7 L, Hct 37.9, MCV 87.9, MCH 27.1, M CHC 30.9 L, RDW Std Deviation 56.8 H, RDW Coeff of Mindy 17.8 H, Plt Count 76 L, M PV 12.3 H, Immature Gran % (Auto) 1.100 H, Neut % (Auto) 52.6, Lymph % (Auto) 15.9 L, [place] % (Auto) 5.6, Eos % (Auto) 22.6 H, Baso % (Auto) 2.2 H, Absolute Neuts (auto) 2.4, Absolute Lymphs (auto) 0.74 L, Nucleated RBC % 0, Differential Comment SCANNED, PT 13.7, INR 1.1, APTT 42.2 H, Sodium 135 L, Potassium 3.0 L, Chloride 98, Carbon Dioxide 30.0, Anion Gap 8, BUN 24 H, Creatinine 3.82 H, Estim Creat Clear Calc 12.51, Est GFR (MDRD) Af Amer 15 L, Est GFR (MDRD) Non-Af 12 L, BUN/Creatinine Ratio 6.3 L, Glucose 122 H, Lactic Acid 1.1, Calcium 9.7, Phosphorus 5.2 H, Magnesium 2.1, Total Bilirubin 0.50, Direct Bilirubin 0.20, AST 24, ALT 16, Alkaline Phosphatase 73, Total Creatine Kinase 16 L, Troponin I High Sens 23, Total Protein 8.0, Albumin 2.8 L, Globulin 5.2 H, Triglycerides 180 04/02/24 10:15: Sodium Cancelled, Potassium Cancelled, Chloride Cancelled, Carbon Dioxide Cancelled, Anion Gap Cancelled, BUN Cancelled, Creatinine Cancelled, Estim Creat Clear Calc Cancelled, Est GFR (MDRD) Af Amer Cancelled, Est GFR (MDRD) Non-Af Cancelled, BUN/Creatinine Ratio Cancelled, Glucose Cancelled, Calcium Cancelled, Phosphorus Cancelled, Magnesium Cancelled 04/02/24 10:30: Urine Color Yellow, Urine Clarity Clear, Urine pH 8.0, Ur Specific [place] 1.015, Urine Protein 100 H, Urine Glucose (UA) Normal, Urine Ketones Negative, Urine Occult Blood 250 H, Urine Nitrite Negative, Urine Bilirubin Negative, Urine Urobilinogen Normal, Ur Leukocyte Esterase Negative, Urine RBC 25-50 SEEN, Urine WBC 0 SEEN, Ur Squamous Epith Cells 0 SEEN, Urine Bacteria 0 SEEN, Urine Mucus 0 SEEN, Urine Opiates Screen NEGATIVE, Urine Methadone Screen NEGATIVE, Ur Barbiturates Screen NEGATIVE, Ur Phencyclidine Scrn NEGATIVE, Ur Amphetamines Screen NEGATIVE, MDMA (Ecstasy) Screen NEGATIVE, U Benzodiazepines Scrn NEGATIVE, Urine Cocaine Screen NEGATIVE, U Cannabinoids Screen NEGATIVE, Ur Drug Screen Comment Micro: Microbiology 04/02/24 14:36 Mucosa - Nasopharyngeal SARS-CoV-2, Influenza & RSV (PCR) - Final ABG Data ABG results: ABG 04/02/24 04/02/24 10:06 14:54 Specimen Type ART ART Sample Site L Radial L Radial pH 7.48 H 7.49 H Bicarbonate Actual 30.1 H 29.1 H Total CO2 31 30 Base Excess 7 H 6 H O2 Saturation 98 96 O2 % 4.0 30.0 ABG pCO2 40.6 38.5 ABG pO2 99 76 Phillip Test Positive Positive Respiration Rate 14 O2 Delivery Device Cannula Adult Vent Vent Mode Not entered AC Tidal Volume 450.0 POC PEEP 5 Imaging Radiology Impression Brain CT 04/02/24 10:02 IMPRESSION: 1. No acute intracranial abnormality. 2. Senescent changes. Electronically Signed: Kurtis Jones MD at 12:03 EST , Chest X-Ray 04/02/24 10:37 IMPRESSION: Bilateral pulmonary opacities consistent with pneumonia and/or pulmonary edema. Electronically Signed: Kurtis Jones MD at 11:15 EST , Chest CT 04/02/24 10:46 IMPRESSION: 1. CHF with pulmonary edema. 2. Malposition of the endotracheal tube. Electronically Signed: Kurtis Jones MD at 12:07 EST , ADDENDUM: 04/02/24 1222 IMPRESSION: 1. CHF with pulmonary edema. 2. Malposition of the endotracheal tube. N.B. : The above Results were Read Back by Kurtis Jones MD to Isaias Wallis, , DO, and understanding confirmed on 04/02/2024 12:15:26 (ET). Electronically Signed: Kurtis Jones MD at 12:07 EST , Chest X-Ray 04/02/24 12:42 IMPRESSION: Persistent bilateral pneumonia and/or pulmonary edema. Persistent left lower lobe consolidation/atelectasis. Electronically Signed: Kurtis Jones MD at 13:25 EST , Assessment and Plan . Assessment and plan: #s/p respiratory failure -due to airway protection issues more so than gas exchange problems #ESRD on HD #altered MS - etiology indeterminate with broad DDx- CVA, sepsis, intoxication Suggest: 1. blood gases reviewed, vent adjusted as needed 2. blood pressure management with IV hydralazine would be appropriate, target SBP < 180 mmHg 3. continue supportive measures while family deliberates over next steps- they may elect for one-way extubation in AM which would be reasonable if that is consistent with patient's previously stated wishes Critical Care Time: 60 minutes The entirety of this encounter was done via Telemedicine
[2024-04-02 17:38] LABS: Troponin-I HS 53 pg/mL (3.0-54.0)
--- NOTE | 2024-04-02 17:53 | CON.PCM.RE_ITS ---
Assessment & Plan Assessment/Plan (1) ESRD (end stage renal disease) on dialysis: (2) HTN (hypertension): (3) Acute hypoxemic respiratory failure: PLAN: Plan Impression/Plan: The patient is a 70-year-old female with past history of ESRD, hypertension, and hyperlipidemia. Patient presented to the hospital today on 04/02/2024 after she was found at [facility] to be unresponsive. Patient was found to have severe hypertension with BP of 199/105 in ED. The patient is admitted to ICU for treatment of acute hypoxic respiratory failure. She has been covered with an antibiotic for possible pneumonia. She was intubated due to inability to protect airway. Reproduction Order Processor asked see the patient because of ESRD. ESRD. The patient dialyzes on MTTF at [facility]. The patient was dialyzed yesterday on 04/01/2024 prior to presentation to hospital. She does not appear to be volume overloaded. Patient is not hyperkalemic or acidotic. Therefore, there is no need for dialysis today. She should be able to wait until 04/04/2024 for her usual dialysis schedule. Will reassess volume status, electrolytes, and acid-base status again tomorrow. Hypertension. Patient initially presented with high BP. Current BP is under control on carvedilol and hydralazine. Will continue to monitor BP. Acute hypoxic respiratory failure. Patient is currently intubated. Patient is being treated with Unasyn and vancomycin for possible HAP and aspiration pneumonia. HPI Consult Data Date of Consult: 04/02/24 HPI Narrative Reason for Consultation: ESRD HPI Narrative: The patient is a 70-year-old female with past history of ESRD, hypertension, and hyperlipidemia. The patient was recently admitted to [facility] for workup of fever. Patient presented to the hospital today on 04/02/2024 after she was found at [facility] to be unresponsive. Patient was found to have severe hypertension with BP of 199/105 in ED. She was intubated due to inability to protect airway. Reproduction Order Processor asked see the patient because of ESRD. Patient dialyzes on MTTF schedule at [facility]. The patient is currently intubated/sedated in ICU. I am unable to obtain history or ROS directly from the patient. Chart was extensively reviewed and hospital progress discussed with hospitalist and RN. [facility] Home Medications ?Medication ?Instructions ?Recorded ?Last Taken ?Type atorvastatin 20 mg tablet 20 mg PO DAILY CHOLESTEROL 04/02/24 04/01/24 History carvedilol 6.25 mg tablet 6.25 mg PO BID HYPERTENSION 04/02/24 04/02/24 History cetirizine 10 mg tablet (24Hour 10 mg PO DAILY ALLERGIES 04/02/24 04/02/24 History Allergy) famotidine 20 mg tablet 20 mg PO BID GERD 04/02/24 04/02/24 History fluticasone propionate 50 2 spray intranasal DAILY PRN 04/02/24 04/02/24 History mcg/actuation nasal allergy symptoms spray,suspension (24 Hour Allergy Relief) gabapentin 100 mg capsule 200 mg PO TID NEUROPATHY 04/02/24 04/02/24 History hydralazine 50 mg tablet 50 mg PO TID HYPERTENSION 04/02/24 04/02/24 History vancomycin 125 mg capsule 125 mg PO Q6H C DIFF 04/02/24 04/02/24 History (Vancocin) vitamin B complex-vitamin C-folic 1 tab PO DAILY SUPPLEMENT 04/02/24 04/02/24 History acid 0.8 mg tablet (Dialyvite 800) Allergy/AdvReac Type Severity Reaction Status Date / Time amlodipine Allergy Unknown PT UNABLE Verified 04/02/24 09:49 TO RESPOND-NEEDS F/U Social History Smoking Status: Unknown if ever smoked ROS ROS Narrative Unable to obtain. Physical Exam Narrative General appearance: Ill-appearing on ventilator HEENT: Normocephalic, atraumatic. Intubated. PERRLA. Mucous membrane moist. Neck: Supple, no JVD. Heart: Normal S1, S2. No rubs, murmurs or gallops. Lungs: Coarse breath sound bilaterally. Abdomen: Normal bowel sounds, soft, nontender, no guarding or rebound. Extremities: No clubbing, cyanosis or edema. Full passive range of motion. Skin: Warm and dry, no rash. Neurologic: No focal deficits. Lab / Micro Data 04/02/24 10:12 04/02/24 10:12 Labs: Laboratory Results - last 24 hr 04/02/24 09:54: POC Glucose 112 H 04/02/24 10:12: WBC 4.6, RBC 4.31, Hgb 11.7 L, Hct 37.9, MCV 87.9, MCH 27.1, M CHC 30.9 L, RDW Std Deviation 56.8 H, RDW Coeff of Mindy 17.8 H, Plt Count 76 L, M PV 12.3 H, Immature Gran % (Auto) 1.100 H, Neut % (Auto) 52.6, Lymph % (Auto) 15.9 L, Cole % (Auto) 5.6, Eos % (Auto) 22.6 H, Baso % (Auto) 2.2 H, Absolute Neuts (auto) 2.4, Absolute Lymphs (auto) 0.74 L, Nucleated RBC % 0, Differential Comment SCANNED, PT 13.7, INR 1.1, APTT 42.2 H, Sodium 135 L, Potassium 3.0 L, Chloride 98, Carbon Dioxide 30.0, Anion Gap 8, BUN 24 H, Creatinine 3.82 H, Estim Creat Clear Calc 12.51, Est GFR (MDRD) Af Amer 15 L, Est GFR (MDRD) Non-Af 12 L, BUN/Creatinine Ratio 6.3 L, Glucose 122 H, Lactic Acid 1.1, Calcium 9.7, P hosphorus 5.2 H, Magnesium 2.1, Total Bilirubin 0.50, Direct Bilirubin 0.20, AST 24, ALT 16, Alkaline Phosphatase 73, Total Creatine Kinase 16 L, Troponin I High Sens 23, Total Protein 8.0, Albumin 2.8 L, Globulin 5.2 H, Triglycerides 180 04/02/24 10:15: Sodium Cancelled, Potassium Cancelled, Chloride Cancelled, Carbon Dioxide Cancelled, Anion Gap Cancelled, BUN Cancelled, Creatinine Cancelled, Estim Creat Clear Calc Cancelled, Est GFR (MDRD) Af Amer Cancelled, Est GFR (MDRD) Non-Af Cancelled, BUN/Creatinine Ratio Cancelled, Glucose Cancelled, Calcium Cancelled, Phosphorus Cancelled, Magnesium Cancelled 04/02/24 10:30: Urine Color Yellow, Urine Clarity Clear, Urine pH 8.0, Ur Specific [place] 1.015, Urine Protein 100 H, Urine Glucose (UA) Normal, Urine Ketones Negative, Urine Occult Blood 250 H, Urine Nitrite Negative, Urine Bilirubin Negative, Urine Urobilinogen Normal, Ur Leukocyte Esterase Negative, Urine RBC 25-50 SEEN, Urine WBC 0 SEEN, Ur Squamous Epith Cells 0 SEEN, Urine Bacteria 0 SEEN, Urine Mucus 0 SEEN, Urine Opiates Screen NEGATIVE, Urine Methadone Screen NEGATIVE, Ur Barbiturates Screen NEGATIVE, Ur Phencyclidine Scrn NEGATIVE, Ur Amphetamines Screen NEGATIVE, MDMA (Ecstasy) Screen NEGATIVE, U Benzodiazepines Scrn NEGATIVE, Urine Cocaine Screen NEGATIVE, U Cannabinoids Screen NEGATIVE, Ur Drug Screen Comment 04/02/24 17:00: Troponin I High Sens 53 Micro: Microbiology 04/02/24 17:05 Urine Catheter - Osullivan Legionella Antigen - Final 04/02/24 17:05 Urine Catheter - Osullivan Streptococcus pneumoniae Antigen (M - Final 04/02/24 14:36 Mucosa - Nasopharyngeal SARS-CoV-2, Influenza & RSV (PCR) - Final ABG Data ABG results: ABG 04/02/24 04/02/24 10:06 14:54 Specimen Type ART ART Sample Site L Radial L Radial pH 7.48 H 7.49 H Bicarbonate Actual 30.1 H 29.1 H Total CO2 31 30 Base Excess 7 H 6 H O2 Saturation 98 96 O2 % 4.0 30.0 ABG pCO2 40.6 38.5 ABG pO2 99 76 Phillip Test Positive Positive Respiration Rate 14 O2 Delivery Device Cannula Adult Vent Vent Mode Not entered AC Tidal Volume 450.0 POC PEEP 5 Imaging Radiology Impression Brain CT 04/02/24 10:02 IMPRESSION: 1. No acute intracranial abnormality. 2. Senescent changes. Electronically Signed: Kurtis Jones MD at 12:03 EST , Chest X-Ray 04/02/24 10:37 IMPRESSION: Bilateral pulmonary opacities consistent with pneumonia and/or pulmonary edema. Electronically Signed: Kurtis Jones MD at 11:15 EST , Chest CT 04/02/24 10:46 IMPRESSION: 1. CHF with pulmonary edema. 2. Malposition of the endotracheal tube. Electronically Signed: Kurtis Jones MD at 12:07 EST , ADDENDUM: 04/02/24 1222 IMPRESSION: 1. CHF with pulmonary edema. 2. Malposition of the endotracheal tube. N.B. : The above Results were Read Back by Kurtis Jones MD to Isaias Wallis, , , and understanding confirmed on 04/02/2024 12:15:26 (ET). Electronically Signed: Kurtis Jones MD at 12:07 EST , Chest X-Ray 04/02/24 12:42 IMPRESSION: Persistent bilateral pneumonia and/or pulmonary edema. Persistent left lower lobe consolidation/atelectasis. Electronically Signed: Kurtis Jones MD at 13:25 EST ,
[2024-04-02 19:52] LABS: Troponin-I HS 45 pg/mL (3.0-54.0)
--- NOTE | 2024-04-02 20:42 | NURSING ---
Called [facility] to verify pt's last dose of vancomycin, last dose @ 0600 04/02/24. Verified pt was in precautions prior to tx. Pt intended to be on PO vanc until 04/05/24. Hospitalist notified.
[2024-04-02] MEDS: hydrALAZINE 50 MG Tablet GT (21:33)
[2024-04-02] MEDS: Chlorhexidine 15 ML PO (21:33)
[2024-04-02] MEDS: Vancomycin 125 MG/5 ML Susp PO.SYRINGE PO (23:30)
[2024-04-02 23:55] LABS: Troponin-I HS 40 pg/mL (3.0-54.0)
[2024-04-03] VITALS (50 sets, daily range): BP systolic 73–196; BP diastolic 35–127; PULSE 48–65; RESP 12–19; TEMP 36.3–37.6; O2SAT 93–100; BMI 25.5
[2024-04-03 04:07] LABS: Absolute Lymphocyte Count 1.03 X10^3/uL (0.83-4.51); Basophil% 2.5 % (0-1); Eosinophil# 0.58 X10^3/uL; Eosinophils% 14.4 % (0-5); Hematocrit 34.6 % (37-47); Hemoglobin 10.5 g/dL (12.0-15.0); Lymphocyte # 1.03 X10^3/ul (0.83-4.51); Lymphocyte % 25.6 % (19-41); Mean Corp Hgb Conc 30.3 g/dL (32-36); Mean Corpuscular Hgb 26.5 pg (27.0-32.0); Mean Corpuscular Volume 87.4 fL (81-99); Mean Platelet Vol. 11.9 fl (6.2-12.0); Monocyte# 0.28 X10^3/uL; NRBC Flagged by Analyzer 0 % (0-5); Neutrophil % 49.8 % (47-70); POSITIVE COUNT YES; Platelet Count 87 K/mm3 (150-450); RBC Distribution Width CV 17.9 % (11.6-14.6); RBC Distribution Width SD 57.1 fl (35.1-43.9); Red Blood Count 3.96 M/mm3 (4.2-5.4)
[2024-04-03] MEDS: CHLORHEXIDINE GLUC 2% CLOTH 1 EACH TOWELETTE TOPICAL (04:09)
[2024-04-03] MEDS: 0.9% Saline Lock 10 ML Syringe IV ×3 (04:09→15:16)
[2024-04-03 04:18] LABS: Anion Gap 9 (5-15); BUN 29 mg/dL (7-18); BUN/Creat Ratio 6.9 RATIO (10-20); Calcium,Total 9.2 mg/dL (8.5-10.1); Chloride 99 mmol/L (98-107); Creatinine, Serum 4.21 mg/dL (0.55-1.02); EST Glomerular Filtration Rate 11 mL/min (>60); Est Glom Filt Rate - Afr Amer 13 mL/min (>60); Glucose 106 mg/dL (74-106); Potassium 3.1 mmol/L (3.5-5.1); Sodium Level 136 mmol/L (136-145)
[2024-04-03] MEDS: hydrALAZINE 50 MG Tablet GT ×2 (05:16→16:36)
[2024-04-03] MEDS: Vancomycin 125 MG/5 ML Susp PO.SYRINGE PO (05:17)
[2024-04-03] MEDS: Propofol 10MG/Ml 1,000 MG/100 ML Bottle 4.5 MG CONT INF (05:17)
[2024-04-03] MEDS: Chlorhexidine 15 ML PO (08:00)
--- NOTE | 2024-04-03 09:18 | RAD_ITS ---
EXAM: XR CHEST, 1 VIEW CLINICAL INDICATION: SOB TECHNIQUE: Frontal view of the chest. COMPARISON: 04/02/2024 FINDINGS: LUNGS AND PLEURAL SPACES: Bilateral pleural effusions and associated airspace disease which may be atelectasis or pneumonia. Diffuse pulmonary opacities likely secondary to edema. No pneumothorax. HEART: No significant abnormality. Cardiac silhouette not enlarged. MEDIASTINUM: Central airways and mediastinal contour are unremarkable. BONES/JOINTS: No significant abnormality. No acute fracture. SOFT TISSUES: No significant abnormality. TUBES, LINES AND DEVICES: The endotracheal tube (ETT) is in satisfactory position. Enteric tube extends below the GE junction. Right side hemodialysis catheter again identified. RAD/Chest 1 View (Portable) IMPRESSION: Bilateral pleural effusions and associated airspace disease which may be atelectasis or pneumonia. Diffuse pulmonary opacities likely secondary to edema. This appears similar to the prior exam. Tubes and lines as above. Electronically Signed: Rosendo Cruz DO at 10:13 EST ,
--- NOTE | 2024-04-03 10:01 | PN.HOSP_ITS ---
Reason for Visit Reason for Visit: Diagnoses Essential (primary) hypertension (04/02/24) Acute respiratory failure with hypoxia (04/02/24) End stage renal disease (04/02/24) Other symptoms and signs involving cognitive functions and awareness (04/02/24) Dependence on renal dialysis (04/02/24) Objective Data Objective Data Vital Signs: Vital Signs Temp Pulse Resp BP Pulse Ox O2 Del Method O2 Flow Rate 98.4 F 49 L 14 163/62 H 95 Mechanical Ventilator 4 04/03/24 09:30 04/03/24 09:43 04/03/24 09:43 04/03/24 09:30 04/03/24 09:43 04/03/24 09:30 04/02/24 10:02 FiO2 30 04/03/24 09:43 Oxygen Flow Rate (L/min) 4 Oxygen Delivery Method Mechanical Ventilator Weight: 158 lb 15.253 oz Body Mass Index (BMI) 25.5 Intake & Output: Intake and Output for Last 24 Hours 04/01/24 04/02/24 04/03/24 23:59 23:59 23:59 Intake Total 320.14 / 327.14 93.00 / 93.00 Output Total 305 / 305 60 / 60 Balance 15.14 / 22.14 33.00 / 33.00 Lab / Micro Data 04/03/24 03:54 04/03/24 03:54 Labs: Laboratory Results - last 24 hr 04/02/24 09:54: POC Glucose 112 H 04/02/24 10:12: WBC 4.6, RBC 4.31, Hgb 11.7 L, Hct 37.9, MCV 87.9, MCH 27.1, M CHC 30.9 L, RDW Std Deviation 56.8 H, RDW Coeff of Mindy 17.8 H, Plt Count 76 L, M PV 12.3 H, Immature Gran % (Auto) 1.100 H, Neut % (Auto) 52.6, Lymph % (Auto) 15.9 L, Hand % (Auto) 5.6, Eos % (Auto) 22.6 H, Baso % (Auto) 2.2 H, Absolute Neuts (auto) 2.4, Absolute Lymphs (auto) 0.74 L, Nucleated RBC % 0, Differential Comment SCANNED, PT 13.7, INR 1.1, APTT 42.2 H, Sodium 135 L, Potassium 3.0 L, Chloride 98, Carbon Dioxide 30.0, Anion Gap 8, BUN 24 H, Creatinine 3.82 H, Estim Creat Clear Calc 12.51, Est GFR (MDRD) Af Amer 15 L, Est GFR (MDRD) Non-Af 12 L, BUN/Creatinine Ratio 6.3 L, Glucose 122 H, Lactic Acid 1.1, Calcium 9.7, P hosphorus 5.2 H, Magnesium 2.1, Total Bilirubin 0.50, Direct Bilirubin 0.20, AST 24, ALT 16, Alkaline Phosphatase 73, Total Creatine Kinase 16 L, Troponin I High Sens 23, Total Protein 8.0, Albumin 2.8 L, Globulin 5.2 H, Triglycerides 180 04/02/24 10:15: Sodium Cancelled, Potassium Cancelled, Chloride Cancelled, Carbon Dioxide Cancelled, Anion Gap Cancelled, BUN Cancelled, Creatinine Cancelled, Estim Creat Clear Calc Cancelled, Est GFR (MDRD) Af Amer Cancelled, Est GFR (MDRD) Non-Af Cancelled, BUN/Creatinine Ratio Cancelled, Glucose Cancelled, Calcium Cancelled, Phosphorus Cancelled, Magnesium Cancelled 04/02/24 10:30: Urine Color Yellow, Urine Clarity Clear, Urine pH 8.0, Ur Specific [place] 1.015, Urine Protein 100 H, Urine Glucose (UA) Normal, Urine Ketones Negative, Urine Occult Blood 250 H, Urine Nitrite Negative, Urine Bilirubin Negative, Urine Urobilinogen Normal, Ur Leukocyte Esterase Negative, Urine RBC 25-50 SEEN, Urine WBC 0 SEEN, Ur Squamous Epith Cells 0 SEEN, Urine Bacteria 0 SEEN, Urine Mucus 0 SEEN, Urine Opiates Screen NEGATIVE, Urine Methadone Screen NEGATIVE, Ur Barbiturates Screen NEGATIVE, Ur Phencyclidine Scrn NEGATIVE, Ur Amphetamines Screen NEGATIVE, MDMA (Ecstasy) Screen NEGATIVE, U Benzodiazepines Scrn NEGATIVE, Urine Cocaine Screen NEGATIVE, U Cannabinoids Screen NEGATIVE, Ur Drug Screen Comment 04/02/24 17:00: Troponin I High Sens 53 04/02/24 19:28: Troponin I High Sens 45 04/02/24 23:27: Troponin I High Sens 40 04/03/24 03:54: WBC 4.0 L, RBC 3.96 L, Hgb 10.5 L, Hct 34.6 L, MCV 87.4, MCH 26.5 L, MCHC 30.3 L, RDW Std Deviation 57.1 H, RDW Coeff of Mindy 17.9 H, Plt Count 87 L, MPV 11.9, Immature Gran % (Auto) 0.700, Neut % (Auto) 49.8, Lymph % (Auto) 25.6, Hand % (Auto) 7.0, Eos % (Auto) 14.4 H, Baso % (Auto) 2.5 H, Absolute Neuts (auto) 2.0, Absolute Lymphs (auto) 1.03, Nucleated RBC % 0, Sodium 136, Potassium 3.1 L, Chloride 99, Carbon Dioxide 28.0, Anion Gap 9, BUN 29 H, Creatinine 4.21 H, Estim Creat Clear Calc 11.20, Est GFR (MDRD) Af Amer 13 L, Est GFR (MDRD) Non-Af 11 L, BUN/Creatinine Ratio 6.9 L, Glucose 106, Calcium 9.2 Micro: Microbiology 04/02/24 17:00 Nasal Secretion MRSA (PCR) - Final 04/02/24 14:36 Mucosa - Nasopharyngeal Respiratory Panel (PCR) - Final 04/02/24 17:05 Urine Catheter - Osullivan Legionella Antigen - Final 04/02/24 17:05 Urine Catheter - Osullivan Streptococcus pneumoniae Antigen (M - Final 04/02/24 14:36 Mucosa - Nasopharyngeal SARS-CoV-2, Influenza & RSV (PCR) - Final ABG Data ABG results: ABG 04/02/24 04/02/24 10:06 14:54 Specimen Type ART ART Sample Site L Radial L Radial pH 7.48 H 7.49 H Bicarbonate Actual 30.1 H 29.1 H Total CO2 31 30 Base Excess 7 H 6 H O2 Saturation 98 96 O2 % 4.0 30.0 ABG pCO2 40.6 38.5 ABG pO2 99 76 Phillip Test Positive Positive Respiration Rate 14 O2 Delivery Device Cannula Adult Vent Vent Mode Not entered AC Tidal Volume 450.0 POC PEEP 5 Radiography Diagnostic Testing: Radiology Impression Brain CT 04/02/24 10:02 IMPRESSION: 1. No acute intracranial abnormality. 2. Senescent changes. Electronically Signed: Kurtis Jones MD at 12:03 EST , Chest X-Ray 04/02/24 10:37 IMPRESSION: Bilateral pulmonary opacities consistent with pneumonia and/or pulmonary edema. Electronically Signed: Kurtis Jones MD at 11:15 EST Reading Location ID and State: [facility] [place] Tel , Service support , Chest CT 04/02/24 10:46 IMPRESSION: 1. CHF with pulmonary edema. 2. Malposition of the endotracheal tube. Electronically Signed: Kurtis Jones MD at 12:07 EST Reading Location ID and State: [address] [place] [address] Tel , Service support , ADDENDUM: 04/02/24 1222 IMPRESSION: 1. CHF with pulmonary edema. 2. Malposition of the endotracheal tube. N.B. : The above Results were Read Back by Kurtis Jones MD to Isaias Wallis, DO, and understanding confirmed on 04/02/2024 12:15:26 (ET). Electronically Signed: Kurtis Jones MD at 12:07 EST Reading Location ID and State: [address] [place] [address] Tel , Service support , Chest X-Ray 04/02/24 12:42 IMPRESSION: Persistent bilateral pneumonia and/or pulmonary edema. Persistent left lower lobe consolidation/atelectasis. Electronically Signed: Kurtis Jones MD at 13:25 EST , Physical Exam Narrative Seen and examined Patient bradycardic since admission. Heart rate in low 50s and upper 40s. Discussed with the research assistant member. Physical exam General: Was confused. Currently intubated on propofol. HEENT: Atraumatic, Normocephalic. Sedated. Oral: ET tube Neck: Supple, No JVD, Negative Carotid Bruits Chest wall/Lungs: Air entry diminished in bilateral lung bases. No crepitation/rhonchi Cardiovascular: Sinus rhythm, Normal S1, Normal S2, systolic murmur Abdomen: Bowel Sounds Present, Soft, Non Tender, Non-Distended :Osullivan catheter with clear urine, No dysuria. No renal angle tenderness. No suprapubic tenderness. Extremities: No significant edema. Capillary Refill Less than 3 Seconds Skin: No rashes, No breakdown Musculoskeletal: No Tenderness to Palpation of Joints or Extremities. Cannot evaluate ROM. Neurological: Sedated was unresponsive. Psych/Mental Status: Sedated Assessment & Plan Assessment/Plan (1) Unresponsive: PLAN: Plan This 78-year-old female admitted with unresponsive episode. 1. Subacute encephalopathy progressed to unresponsive episode, exact etiology unclear: Patient is being admitted in ICU. Intubated on CMV mode ventilator to protect airway. FiO2 35%. MRI brain and EEG ordered. U tox ordered. CT brain does not show acute intracranial abnormality but salicin chest disease. 04/03, patient responsive to pain but no eye-opening. Patient sedated even propofol and fentanyl are weaned off. EEG done but not reported. MRI brain not done yet. Neuroconsult not done yet 2. Mild hypoxia possible chronic hypoxic respiratory failure with suspicion of possible pneumonia/pulmonary edema, intubated on ventilator to protect airway: Patient patient on oxygen as per daughter does not know exact amount/dose. Patient was tachypneic on 4 L of oxygen. Chest x-ray individually reviewed which shows bilateral pulmonary alveolar opacity mainly in lower lobes possible pulmonary edema or pneumonia. BNP ordered. Troponin normal. Suspicion of possible aspiration pneumonia therefore started on IV Unasyn, renally dosed. Framing Mill Operator consulted for vent management neurologist consulted. 04/03: Patient on 30% FiO2 RR 14. Framing Mill Operator consulted. Family met to make decision on the terminal extubation. Serial troponins negative 3. ESRD on MTTF: Customer Care Consultant is consulted. Patient on Thursday and Thursday 2-hour dialysis session management 04/03: Discussed with the research assistant member on 04/02. Does not seem fluid overload as patient does not have leg swelling. Patient was not dialyzed yesterday. Dialysis regimen as per research assistant member 4. Intermittent fever after dialysis: Patient was admitted in [facility] in February for about 2 and half weeks. Try to get medical record. If patient spikes fever will need ID. 04/03: Patient not had fever. Triple PCR for SARS-CoV-2, flu and RSV are negative. Respiratory panel negative. MRSA nasal screen negative. Urinary antigens negative. 4. Recent C. difficile on oral vancomycin: Patient on vancomycin 125 p.o. Q6 hourly from senior care. Continued. 04/03: Oral vancomycin was discontinued after the information from the senior care the patient had 4 weeks of vancomycin 125 mg p.o. 6 hourly. Unclear why it was again ordered. 6. Essential accelerated hypertension: Blood pressure was high 192/89, 199/185. Most recent 155/71. Labetalol as needed. Living will/advanced directive/end of life care: Patient does have living will or advanced directive. After discussion of benefits/risks procedures involved with full code, DNR CC arrest and DNR CC, the patient's daughter said she is the power of compliance attorney for health. She does not want CPR but okay with intubation ventilator therefore DNR CC arrest with intubation Patient doesn't want artificial life support including chest compression/CPR, central venous catheter, vasopressor and DC shock if needed Total time spent in [id number] encounter in discussion of advanced directive 17 minutes. Microbiology Past 72 Hours 04/02/24 17:00 Nasal Secretion MRSA (PCR) - Final 04/02/24 14:36 Mucosa - Nasopharyngeal Respiratory Panel (PCR) - Final 04/02/24 17:05 Urine Catheter - Osullivan Legionella Antigen - Final 04/02/24 17:05 Urine Catheter - Osullivan Streptococcus pneumoniae Antigen (M - Final 04/02/24 14:36 Mucosa - Nasopharyngeal SARS-CoV-2, Influenza & RSV (PCR) - Final Laboratory Results 1 04/03/24 03:54: WBC 4.0 L, RBC 3.96 L, Hgb 10.5 L, Hct 34.6 L, MCV 87.4, MCH 26.5 L, MCHC 30.3 L, RDW Std Deviation 57.1 H, RDW Coeff of Mindy 17.9 H, Plt Count 87 L, MPV 11.9, Immature Gran % (Auto) 0.700, Neut % (Auto) 49.8, Lymph % (Auto) 25.6, Hand % (Auto) 7.0, Eos % (Auto) 14.4 H, Baso % (Auto) 2.5 H, Absolute Neuts (auto) 2.0, Absolute Lymphs (auto) 1.03, Nucleated RBC % 0, Sodium 136, Potassium 3.1 L, Chloride 99, Carbon Dioxide 28.0, Anion Gap 9, BUN 29 H, Creatinine 4.21 H, Estim Creat Clear Calc 11.20, Est GFR (MDRD) Af Amer 13 L, Est GFR (MDRD) Non-Af 11 L, BUN/Creatinine Ratio 6.9 L, Glucose 106, Calcium 9.2 Clinical Impression(s) from Imaging Studies Brain CT 04/02/24 10:02 IMPRESSION: 1. No acute intracranial abnormality. 2. Senescent changes. Electronically Signed: Kurtis Jones MD at 12:03 EST Reading Location ID and State: [facility] [place] Tel , Service support , Chest X-Ray 04/02/24 10:37 IMPRESSION: Bilateral pulmonary opacities consistent with pneumonia and/or pulmonary edema. Electronically Signed: Kurtis Jones MD at 11:15 EST , Chest CT 04/02/24 10:46 IMPRESSION: 1. CHF with pulmonary edema. 2. Malposition of the endotracheal tube. Electronically Signed: Kurtis Jones MD at 12:07 EST , ADDENDUM: 04/02/24 1222 IMPRESSION: 1. CHF with pulmonary edema. 2. Malposition of the endotracheal tube. Chest X-Ray 04/02/24 12:42 IMPRESSION: Persistent bilateral pneumonia and/or pulmonary edema. Persistent left lower lobe consolidation/atelectasis. Charges/Coding Visit Charges Inpatient E&M: 96149 [facility] L3
[2024-04-03] MEDS: Heparin Injection (Vial) 5,000 UNIT/ML VIAL 5000 UNIT SC (10:09)
[2024-04-03] MEDS: Famotidine 20 MG Tablet GT (10:10)
[2024-04-03] MEDS: Atorvastatin Calcium 20 MG Tablet GT (10:10)
[2024-04-03] MEDS: Ampicillin/Sulbactam 3 GM in 0.9% Normal Saline (100mL MB+) 100 ML IV (10:11)
--- NOTE | 2024-04-03 11:09 | NEURO.CONS ---
Assessment and Plan: Neuro Assessment/Plan STEFFANY HELMS is a 78 F with a past medical history of ESRD, being evaluated by Teleneurology for acute onset confusion state. Exam concerning for possible stroke vs severe encephalopathy vs NCSE. Yesterday's EEG with intermittent slowing, severe encephalopathy, and triphasic waves concern for metabolic derrangement. Cannot rule out possible transient hypoxic event causing the changes. At this time exam is more concerning for stroke but LKW was >24 hrs ago. Plan: - recommend EEG now that pt is off sedation to evaluate progression of EEG, should be able to observe the L arm twitching as well. - CTA head.neck - MRI Brain when able - ammonia level as EEG with triphasic waves I personally attended this patient and spent a total time of 30 minutes evaluating this patient including clinical assessment, review of chart, medical history imaging, and determining appropriate treatment and workup. HPI Consult Data Date of Consult: 04/03/24 HPI Narrative HPI Narrative: STEFFANY HELMS, is a 78 F who presents from a [facility] after being found unresponsive this morning, last seen well the night before. She is ESRD on maintenance HD and is not known to have missed any treatments. She was promptly intubated in the ED for airway protection anf is transp[orted to ICU for expectant management. She has not had any further instability since arrival in ICU. Of note she has a Living Will but per report the family understood that document to be a DNR order, thus are understandably confused by the events of the day. STEFFANY HELMS, is a 78 F was brought by EMS for being unresponsive in half-way. As per the daughter who is present in ED, she said half-way informed that she is unresponsive and is being taken to the [facility] ED. In ED, her BP was high 199/105, MAP 136, heart rate 50s, 99 on 4 L of oxygen. She was intubated as she could not protect her airways. She was tachypneic in ED before intubation As per the daughter, she has been confused for last couple days in half-way. She was saying that she wants to go home with some intermittent hallucinations half-way. She gets fever after dialysis on Thursday and Thursday. She was dialyzed yesterday. She was admitted for 2 and half weeks in [facility] and intermittent fever but infectious workup was negative. When I saw the patient send already intubated therefore history mainly obtained from her daughter. She makes some urine. UA not suggestive of infectious workup. Labs and imaging discussed in assessment and plan. Neurologic History Pt has been in an out of hospitals for a while and no longer could walk. started HD in December and not tolerating well. Has never had a stroke, has had some confusion here and there. Sometimes she will be poorly responsive after HD but usually will wake up. Pt last HD was on Thursday and patient was doing ok. Family is not aware if there is any new medications recently. PFSH Home Medications ?Medication ?Instructions ?Recorded ?Last Taken ?Type atorvastatin 20 mg tablet 20 mg PO DAILY CHOLESTEROL 04/02/24 04/01/24 History carvedilol 6.25 mg tablet 6.25 mg PO BID HYPERTENSION 04/02/24 04/02/24 History cetirizine 10 mg tablet (24Hour 10 mg PO DAILY ALLERGIES 04/02/24 04/02/24 History Allergy) famotidine 20 mg tablet 20 mg PO BID GERD 04/02/24 04/02/24 History fluticasone propionate 50 2 spray intranasal DAILY PRN 04/02/24 04/02/24 History mcg/actuation nasal allergy symptoms spray,suspension (24 Hour Allergy Relief) gabapentin 100 mg capsule 200 mg PO TID NEUROPATHY 04/02/24 04/02/24 History hydralazine 50 mg tablet 50 mg PO TID HYPERTENSION 04/02/24 04/02/24 History vancomycin 125 mg capsule 125 mg PO Q6H C DIFF 04/02/24 04/02/24 History (Vancocin) vitamin B complex-vitamin C-folic 1 tab PO DAILY SUPPLEMENT 04/02/24 04/02/24 History acid 0.8 mg tablet (Dialyvite 800) Allergy/AdvReac Type Severity Reaction Status Date / Time amlodipine Allergy Unknown PT UNABLE Verified 04/02/24 09:49 TO RESPOND-NEEDS F/U Social History Smoking Status: Unknown if ever smoked Vital Signs Vital Signs Vital Signs: 04/02/24 11:31 04/02/24 12:00 04/02/24 12:15 Temperature 96.2 F L Temperature Source Core Pulse Rate 67 61 Pulse Strength Respiratory Rate 15 16 Respiratory Effort Respiratory Depth Respiratory Pattern Blood Pressure 161/92 H 161/92 H Blood Pressure Mean 115 115 Blood Pressure Source Blood Pressure Position Blood Pressure Location Pulse Ox 95 92 Oxygen Delivery Method Mechanical Ventilator Fraction of Inspired Oxygen (FIO2) 25 04/02/24 12:15 04/02/24 13:00 04/02/24 13:38 Temperature 96.7 F L 97.3 F L Temperature Source Core Pulse Rate 49 L 62 Pulse Strength Respiratory Rate 16 20 H Respiratory Effort Respiratory Depth Respiratory Pattern Blood Pressure 160/64 H 155/71 H Blood Pressure Mean 96 99 Blood Pressure Source Blood Pressure Position Blood Pressure Location Pulse Ox 95 97 Oxygen Delivery Method Mechanical Ventilator Fraction of Inspired Oxygen (FIO2) 35 04/02/24 13:45 04/02/24 14:00 04/02/24 14:42 Temperature 97.6 F L Temperature Source Core Pulse Rate 58 L 54 L 55 L Pulse Strength Respiratory Rate 13 14 Respiratory Effort Respiratory Depth Respiratory Pattern Blood Pressure 170/64 H Blood Pressure Mean 95 Blood Pressure Source Blood Pressure Position Blood Pressure Location Pulse Ox 97 94 Oxygen Delivery Method Mechanical Ventilator Fraction of Inspired Oxygen (FIO2) 30 04/02/24 14:45 04/02/24 15:00 04/02/24 15:15 Temperature Temperature Source Pulse Rate 57 L 57 L 53 L Pulse Strength Respiratory Rate 16 14 14 Respiratory Effort Respiratory Depth Respiratory Pattern Blood Pressure 154/98 H 191/85 H 166/72 H Blood Pressure Mean 116 120 103 Blood Pressure Source Monitor Monitor Monitor Blood Pressure Position Semi-Fowlers Semi-Fowlers Semi-Fowlers Blood Pressure Location Left Leg Left Leg Left Leg Pulse Ox 96 95 95 Oxygen Delivery Method Mechanical Ventilator Mechanical Ventilator Mechanical Ventilator Fraction of Inspired Oxygen (FIO2) 30 30 30 04/02/24 15:30 04/02/24 15:30 04/02/24 16:00 Temperature 99.0 F Temperature Source Core Pulse Rate 54 L 58 L Pulse Strength Respiratory Rate 14 16 Respiratory Effort Mechanically Ventilated Respiratory Depth Normal Respiratory Pattern Normal Blood Pressure 154/73 H 195/85 H Blood Pressure Mean 100 121 Blood Pressure Source Monitor Monitor Blood Pressure Position Semi-Fowlers Semi-Fowlers Blood Pressure Location Left Leg Left Leg Pulse Ox 94 95 Oxygen Delivery Method Mechanical Ventilator Mechanical Ventilator Mechanical Ventilator Fraction of Inspired Oxygen (FIO2) 30 30 04/02/24 16:30 04/02/24 16:45 04/02/24 17:00 Temperature Temperature Source Pulse Rate 50 L 53 L 52 L Pulse Strength Respiratory Rate 12 14 14 Respiratory Effort Respiratory Depth Respiratory Pattern Blood Pressure 169/72 H 163/68 H 157/67 H Blood Pressure Mean 104 99 97 Blood Pressure Source Monitor Monitor Monitor Blood Pressure Position Semi-Fowlers Semi-Fowlers Semi-Fowlers Blood Pressure Location Left Leg Left Leg Left Leg Pulse Ox 95 95 95 Oxygen Delivery Method Mechanical Ventilator Mechanical Ventilator Mechanical Ventilator Fraction of Inspired Oxygen (FIO2) 30 30 30 04/02/24 17:48 04/02/24 18:00 04/02/24 19:00 Temperature 99.5 F H 99.6 F H Temperature Source Core Core Pulse Rate 54 L 54 L 52 L Pulse Strength Respiratory Rate 14 14 14 Respiratory Effort Respiratory Depth Respiratory Pattern Blood Pressure 160/64 H 141/65 H Blood Pressure Mean 96 90 Blood Pressure Source Monitor Monitor Blood Pressure Position Semi-Fowlers Semi-Fowlers Blood Pressure Location Left Leg Left Leg Pulse Ox 95 95 95 Oxygen Delivery Method Mechanical Ventilator Mechanical Ventilator Fraction of Inspired Oxygen (FIO2) 30 30 30 04/02/24 20:00 04/02/24 20:00 04/02/24 20:25 Temperature 99.7 F H Temperature Source Core Pulse Rate 53 L Pulse Strength Normal (2+) Respiratory Rate 14 Respiratory Effort Mechanically Ventilated Respiratory Depth Normal Respiratory Pattern Normal Blood Pressure 165/64 H Blood Pressure Mean 97 Blood Pressure Source Monitor Blood Pressure Position Semi-Fowlers Blood Pressure Location Left Leg Pulse Ox 95 Oxygen Delivery Method Mechanical Ventilator Mechanical Ventilator Fraction of Inspired Oxygen (FIO2) 30 30 04/02/24 20:54 04/02/24 21:00 04/02/24 21:33 Temperature 99.9 F H Temperature Source Core Pulse Rate 52 L 52 L 59 L Pulse Strength Respiratory Rate 14 14 Respiratory Effort Respiratory Depth Respiratory Pattern Blood Pressure 140/57 H 140/57 H Blood Pressure Mean 84 Blood Pressure Source Monitor Blood Pressure Position Semi-Fowlers Blood Pressure Location Left Leg Pulse Ox 95 95 Oxygen Delivery Method Mechanical Ventilator Fraction of Inspired Oxygen (FIO2) 30 30 04/02/24 22:00 04/02/24 23:00 04/02/24 23:14 Temperature 99.9 F H 99.7 F H Temperature Source Core Core Pulse Rate 52 L 51 L 52 L Pulse Strength Respiratory Rate 14 14 14 Respiratory Effort Respiratory Depth Respiratory Pattern Blood Pressure 148/66 H 119/58 L Blood Pressure Mean 93 78 Blood Pressure Source Monitor Monitor Blood Pressure Position Semi-Fowlers Semi-Fowlers Blood Pressure Location Left Leg Left Leg Pulse Ox 95 94 94 Oxygen Delivery Method Mechanical Ventilator Mechanical Ventilator Fraction of Inspired Oxygen (FIO2) 30 30 30 04/03/24 00:00 04/03/24 00:00 04/03/24 01:00 Temperature 99.5 F H 99.5 F H Temperature Source Core Core Pulse Rate 52 L 50 L Pulse Strength Respiratory Rate 14 14 Respiratory Effort Mechanically Ventilated Respiratory Depth Normal Respiratory Pattern Normal Blood Pressure 117/49 L 126/57 H Blood Pressure Mean 71 80 Blood Pressure Source Monitor Monitor Blood Pressure Position Semi-Fowlers Semi-Fowlers Blood Pressure Location Left Leg Left Leg Pulse Ox 94 95 Oxygen Delivery Method Mechanical Ventilator Mechanical Ventilator Mechanical Ventilator Fraction of Inspired Oxygen (FIO2) 30 30 30 04/03/24 02:00 04/03/24 02:40 04/03/24 03:00 Temperature 99.6 F H 99.6 F H Temperature Source Core Core Pulse Rate 58 L 52 L 49 L Pulse Strength Respiratory Rate 14 14 14 Respiratory Effort Respiratory Depth Respiratory Pattern Blood Pressure 114/59 L 126/60 H Blood Pressure Mean 77 82 Blood Pressure Source Monitor Monitor Blood Pressure Position Semi-Fowlers Semi-Fowlers Blood Pressure Location Left Leg Left Leg Pulse Ox 93 94 94 Oxygen Delivery Method Mechanical Ventilator Mechanical Ventilator Fraction of Inspired Oxygen (FIO2) 30 30 30 04/03/24 04:00 04/03/24 04:00 04/03/24 05:00 Temperature 99.5 F H 99.3 F H Temperature Source Core Core Pulse Rate 61 53 L Pulse Strength Respiratory Rate 14 14 Respiratory Effort Mechanically Ventilated Respiratory Depth Normal Respiratory Pattern Normal Blood Pressure 144/64 H 111/49 L Blood Pressure Mean 90 69 Blood Pressure Source Monitor Monitor Blood Pressure Position Semi-Fowlers Semi-Fowlers Blood Pressure Location Left Leg Left Leg Pulse Ox 100 94 Oxygen Delivery Method Mechanical Ventilator Mechanical Ventilator Mechanical Ventilator Fraction of Inspired Oxygen (FIO2) 30 30 30 04/03/24 05:12 04/03/24 05:16 04/03/24 06:00 Temperature 98.9 F Temperature Source Core Pulse Rate 51 L 50 L 51 L Pulse Strength Respiratory Rate 14 14 Respiratory Effort Respiratory Depth Respiratory Pattern Blood Pressure 143/50 H 166/70 H Blood Pressure Mean 102 Blood Pressure Source Monitor Blood Pressure Position Semi-Fowlers Blood Pressure Location Left Leg Pulse Ox 95 96 Oxygen Delivery Method Mechanical Ventilator Fraction of Inspired Oxygen (FIO2) 30 30 04/03/24 07:00 04/03/24 07:00 04/03/24 07:10 Temperature 98.9 F Temperature Source Core Pulse Rate 48 L 48 L 48 L Pulse Strength Respiratory Rate 14 14 Respiratory Effort Respiratory Depth Respiratory Pattern Blood Pressure 116/54 L Blood Pressure Mean 74 Blood Pressure Source Monitor Blood Pressure Position Semi-Fowlers Blood Pressure Location Left Leg Pulse Ox 95 95 Oxygen Delivery Method Mechanical Ventilator Fraction of Inspired Oxygen (FIO2) 30 30 04/03/24 07:56 04/03/24 08:00 04/03/24 08:00 Temperature 98.4 F Temperature Source Core Pulse Rate 48 L 49 L Pulse Strength Respiratory Rate 14 14 Respiratory Effort Mechanically Ventilated Respiratory Depth Normal Respiratory Pattern Normal Blood Pressure 151/71 H Blood Pressure Mean 97 Blood Pressure Source Monitor Blood Pressure Position Semi-Fowlers Blood Pressure Location Left Leg Pulse Ox 95 95 Oxygen Delivery Method Mechanical Ventilator Mechanical Ventilator Fraction of Inspired Oxygen (FIO2) 30 30 30 04/03/24 08:15 04/03/24 08:30 04/03/24 08:45 Temperature 98.4 F 98.4 F 98.4 F Temperature Source Core Core Core Pulse Rate 50 L 48 L 48 L Pulse Strength Respiratory Rate 14 12 14 Respiratory Effort Respiratory Depth Respiratory Pattern Blood Pressure 141/97 H 165/60 H 151/57 H Blood Pressure Mean 111 95 88 Blood Pressure Source Monitor Monitor Monitor Blood Pressure Position Semi-Fowlers Semi-Fowlers Semi-Fowlers Blood Pressure Location Left Leg Left Leg Left Leg Pulse Ox 95 95 95 Oxygen Delivery Method Mechanical Ventilator Mechanical Ventilator Mechanical Ventilator Fraction of Inspired Oxygen (FIO2) 30 30 30 04/03/24 09:00 04/03/24 09:15 04/03/24 09:30 Temperature 98.4 F 98.4 F 98.4 F Temperature Source Core Core Core Pulse Rate 50 L 55 L 48 L Pulse Strength Respiratory Rate 14 14 14 Respiratory Effort Respiratory Depth Respiratory Pattern Blood Pressure 163/72 H 176/127 H 163/62 H Blood Pressure Mean 102 143 95 Blood Pressure Source Monitor Monitor Monitor Blood Pressure Position Semi-Fowlers Semi-Fowlers Semi-Fowlers Blood Pressure Location Left Leg Left Leg Left Leg Pulse Ox 95 95 95 Oxygen Delivery Method Mechanical Ventilator Mechanical Ventilator Mechanical Ventilator Fraction of Inspired Oxygen (FIO2) 30 30 30 04/03/24 09:43 Temperature Temperature Source Pulse Rate 49 L Pulse Strength Respiratory Rate 14 Respiratory Effort Respiratory Depth Respiratory Pattern Blood Pressure Blood Pressure Mean Blood Pressure Source Blood Pressure Position Blood Pressure Location Pulse Ox 95 Oxygen Delivery Method Fraction of Inspired Oxygen (FIO2) 30 Weight Weight: 72.1 kg Body Mass Index (BMI) 25.5 EEG Results Procedure Details EEG Procedure Details: STEFFANY HELMS is a 78 year old F with a past medical history of , who presents for evaluation of Electroencephalogram on DATE at TIME Physical Exam Narrative Pt examined off sedation pupils are 3mm, reactive ont he R, less so on the L Doll's eyes appropriate to the L poorly to the R + gag and cough blink intact b/l Pt no response to sternal rub LUE with slight reaction to noxious stim, none of the R There is slight jerking intermittently on the LUE RLE triple flesion, LLE with tiwthdrawal and up-going toe Lab / Micro Data 04/03/24 03:54 04/03/24 03:54 Labs: Laboratory Results - last 24 hr 04/02/24 10:12: Phosphorus 5.2 H, Magnesium 2.1 04/02/24 10:15: Sodium Cancelled, Potassium Cancelled, Chloride Cancelled, Carbon Dioxide Cancelled, Anion Gap Cancelled, BUN Cancelled, Creatinine Cancelled, Estim Creat Clear Calc Cancelled, Est GFR (MDRD) Af Amer Cancelled, Est GFR (MDRD) Non-Af Cancelled, BUN/Creatinine Ratio Cancelled, Glucose Cancelled, Calcium Cancelled, Phosphorus Cancelled, Magnesium Cancelled 04/02/24 10:30: Urine Opiates Screen NEGATIVE, Urine Methadone Screen NEGATIVE, Ur Barbiturates Screen NEGATIVE, Ur Phencyclidine Scrn NEGATIVE, Ur Amphetamines Screen NEGATIVE, MDMA (Ecstasy) Screen NEGATIVE, U Benzodiazepines Scrn NEGATIVE, Urine Cocaine Screen NEGATIVE, U Cannabinoids Screen NEGATIVE, Ur Drug Screen Comment 04/02/24 17:00: Troponin I High Sens 53 04/02/24 19:28: Troponin I High Sens 45 04/02/24 23:27: Troponin I High Sens 40 04/03/24 03:54: WBC 4.0 L, RBC 3.96 L, Hgb 10.5 L, Hct 34.6 L, MCV 87.4, MCH 26.5 L, MCHC 30.3 L, RDW Std Deviation 57.1 H, RDW Coeff of Mindy 17.9 H, Plt Count 87 L, MPV 11.9, Immature Gran % (Auto) 0.700, Neut % (Auto) 49.8, Lymph % (Auto) 25.6, [place] % (Auto) 7.0, Eos % (Auto) 14.4 H, Baso % (Auto) 2.5 H, Absolute Neuts (auto) 2.0, Absolute Lymphs (auto) 1.03, Nucleated RBC % 0, Sodium 136, Potassium 3.1 L, Chloride 99, Carbon Dioxide 28.0, Anion Gap 9, BUN 29 H, Creatinine 4.21 H, Estim Creat Clear Calc 11.20, Est GFR (MDRD) Af Amer 13 L, Est GFR (MDRD) Non-Af 11 L, BUN/Creatinine Ratio 6.9 L, Glucose 106, Calcium 9.2, B-Natriuretic Peptide 738.0 H Micro: Microbiology 04/02/24 17:00 Nasal Secretion MRSA (PCR) - Final 04/02/24 14:36 Mucosa - Nasopharyngeal Respiratory Panel (PCR) - Final 04/02/24 17:05 Urine Catheter - [place] Legionella Antigen - Final 04/02/24 17:05 Urine Catheter - [place] Streptococcus pneumoniae Antigen (M - Final 04/02/24 14:36 Mucosa - Nasopharyngeal SARS-CoV-2, Influenza & RSV (PCR) - Final ABG Data ABG results: ABG 04/02/24 14:54 Specimen Type ART Sample Site L Radial pH 7.49 H Bicarbonate Actual 29.1 H Total CO2 30 Base Excess 6 H O2 Saturation 96 O2 % 30.0 ABG pCO2 38.5 ABG pO2 76 Phillip Test Positive Respiration Rate 14 O2 Delivery Device Adult Vent Vent Mode AC Tidal Volume 450.0 POC PEEP 5 Imaging Radiology Impression Brain CT 04/02/24 10:02 IMPRESSION: 1. No acute intracranial abnormality. 2. Senescent changes. Electronically Signed: Kurtis Jones MD at 12:03 EST , Chest X-Ray 04/02/24 10:37 IMPRESSION: Bilateral pulmonary opacities consistent with pneumonia and/or pulmonary edema. Electronically Signed: Kurtis Jones MD at 11:15 EST Reading Location ID and State: [facility] / [place] Tel , Service support , Chest CT 04/02/24 10:46 IMPRESSION: 1. CHF with pulmonary edema. 2. Malposition of the endotracheal tube. Electronically Signed: Kurtis Jones MD at 12:07 EST Reading Location ID and State: [facility] / [place] Tel , Service support , ADDENDUM: 04/02/24 1222 IMPRESSION: 1. CHF with pulmonary edema. 2. Malposition of the endotracheal tube. N.B. : The above Results were Read Back by Kurtis Jones MD to Isaias Wallis, DO, and understanding confirmed on 04/02/2024 12:15:26 (ET). Electronically Signed: Kurtis Jones MD at 12:07 EST , Chest X-Ray 04/02/24 12:42 IMPRESSION: Persistent bilateral pneumonia and/or pulmonary edema. Persistent left lower lobe consolidation/atelectasis. Electronically Signed: Kurtis Jones MD at 13:25 EST Reading Location ID and State: [facility] / [place] Tel , Service support , Chest X-Ray 04/03/24 09:18 IMPRESSION: Bilateral pleural effusions and associated airspace disease which may be atelectasis or pneumonia. Diffuse pulmonary opacities likely secondary to edema. This appears similar to the prior exam. Tubes and lines as above. Electronically Signed: Rosendo Cruz DO at 10:13 EST Reading Location ID and State: [facility] / [place] Tel , Service support , Active Medications Active Medications Active Medications: Current Medications Generic Name Dose Route Start Last Admin Trade Name Freq PRN Reason Stop Dose Admin Acetaminophen 650 mg 04/02/24 14:31 Acetaminophen 325 Mg Tablet GT Q6H PRN PRN Pain 1-10 Or Fever>100.7 Albuterol/Ipratropium 3 ml 04/02/24 14:31 Ipratropium/Albuterol Sulfate 3 Ml Ampul.Neb INHALATION Q4H.RT PRN shortness of breath Atorvastatin Calcium 20 mg 04/02/24 14:31 04/03/24 10:10 Atorvastatin Calcium 20 Mg Tablet GT 20 mg DAILY LINDSEY Administration Chlorhexidine Gluconate 15 ml 04/02/24 22:00 04/03/24 08:00 Chlorhexidine 15 Ml PO 15 ml BID LINDSEY Administration Chlorhexidine Gluconate 1 each 04/03/24 10:00 04/03/24 04:09 Chlorhexidine Gluc 2% Cloth 1 Each [place] TOPICAL 1 each DAILY LINDSEY Administration Famotidine 20 mg 04/03/24 10:00 04/03/24 10:10 Famotidine 20 Mg Tablet GT 20 mg DAILY LINDSEY Administration Heparin Sodium (Porcine) 5,000 unit 04/02/24 14:31 04/03/24 10:09 Heparin Injection (Vial) 5,000 Unit/Ml Vial SC 5,000 unit Q12 LINDSEY Administration Hydralazine HCl 10 mg 04/02/24 14:31 Hydralazine 20 Mg/Ml Vial IV Q4H PRN PRN SBP more than 180 mmHg Protocol Hydralazine HCl 50 mg 04/02/24 14:31 04/03/24 05:16 Hydralazine 50 Mg Tablet GT 50 mg TID LINDSEY Administration Protocol Propofol 1,000 mg in 100 mls @ 4.458 mls/hr 04/02/24 10:05 04/03/24 10:11 Diprivan CONT INF Not Given .Q12H LINDSEY Protocol 10 MCG/KG/MIN Fentanyl 100 mls @ 5 mls/hr 04/02/24 13:35 04/03/24 08:00 CONT INF 0 mcg/hr UD LINDSEY 0 mls/hr Titration Protocol 50 MCG/HR Ampicillin Sodium/Sulbactam 112 mls @ 150 mls/hr 04/02/24 14:31 04/03/24 10:11 Sodium 3 gm/ Sodium Chloride IV 150 mls/hr Q24 LINDSEY Administration Labetalol HCl 20 mg 04/02/24 14:31 04/02/24 16:12 Labetalol (Prefilled) 20 Mg/4 Ml Vial IV 20 mg Q4H PRN PRN Administration SBP >190 mmhg Sodium Chloride 10 - 40 ml 04/02/24 14:27 04/03/24 10:09 0.9% Saline Lock 10 Ml Syringe IV 20 ml UD PRN Administration SALINE FLUSH
--- NOTE | 2024-04-03 11:50 | CT_ITS ---
STUDY: CT BRAIN WITHOUT CONTRAST REASON FOR EXAM: Female, 78 years old. unresponsive, r/o basilar art occlusion RADIATION DOSAGE (If Supplied By Facility): CTDIvol = ( 32.26 ) mGy, DLP = ( 1554.60 ) mGycm TECHNIQUE: Transaxial CT imaging of the brain was performed without administration of intravenous contrast material. Individualized dose optimization techniques were used for this CT. COMPARISON: Head CT dated April 02, 2024 FINDINGS: No visualized dense artery sign in the MCA or basilar artery territories. No visualized sulcal effacement or loss of gonzales-white differentiation to indicate acute infarction. No extra-axial fluid collection or midline shift is present. Normal soft tissue structures. Normal calvarium. There is moderate cerebral atrophy with widening of the extra-axial spaces and ventricular dilatation. There are areas of decreased attenuation within the white matter tracts of the supratentorial brain, consistent with microvascular disease changes. Normal basal ganglia and thalami. Normal brainstem. Normal cerebellum. There is no intracranial hemorrhage. There are no findings of an acute ischemic infarction. Normal visualized paranasal sinuses. CT/CTA Head AND Neck W/ Contrast IMPRESSION: 1. No visualized dense artery sign in the MCA or basilar artery territories. No visualized sulcal effacement or loss of gonzales-white differentiation to indicate acute infarction. No extra-axial fluid collection or midline shift is present. STUDY: CTA HEAD AND NECK WITH CONTRAST REASON FOR EXAM: Female, 78 years old. unresponsive, r/o basilar art occlusion RADIATION DOSAGE (If Supplied By Facility): CTDIvol = ( 32.26 ) mGy, DLP = ( 1554.60 ) mGycm TECHNIQUE: CT angiography was performed with a multi-detector CT scanner. Data acquisition was obtained from the skull base through the vertex following intravenous administration of IV 75mL Isovue-370. MIP images were reconstructed from the axial data set. Post-processing of the angiographic images was performed, with multiplanar reformation and 3D reconstruction. Individualized dose optimization techniques were used for this CT. COMPARISON: Head CT dated April 02, 2024 FINDINGS: Normal bilateral petrous carotid arteries. There is calcified plaque formation of the right cavernous carotid artery, with a mild stenosis (less than 50%). There is calcified plaque formation of the left cavernous carotid artery, with a mild stenosis (less than 50%). Normal right A1 segments of the anterior cerebral artery. Normal left A1 segments of the anterior cerebral artery. Normal intact anterior communicating artery (ACOM). Normal bilateral A2 segments of the anterior cerebral arteries. Normal right M1 and M2 segments of the middle cerebral arteries, with a normal M1 bifurcation. Normal left M1 and M2 segments of the middle cerebral arteries, with a normal M1 bifurcation. Normal right posterior communicating artery (PCOM). There is non-visualization of the left posterior communicating artery (PCOM). Normal bilateral vertebral arteries. There is tortuosity with elongation of the basilar artery. There is no tip of the basilar artery aneurysm. The mock appearance is due to tortuosity and curving of the vessel at its junction with the posterior cerebral arteries. No thrombus or occlusion is seen in the basilar artery. The visualized bilateral superior cerebellar (SCA) arteries are normal. Normal bilateral P1, P2 and visualized P3 segments of the posterior cerebral arteries. There is no demonstrated aneurysm of the [place]. No demonstrated thrombus or occlusion or hemodynamically significant stenosis of the major intracranial arteries. Fully patent and normal enhancement of the major intracranial venous sinuses, with no evidence of venous sinus thrombosis or occlusion. NECK CTA: AORTIC ARCH: There is atherosclerotic calcific plaque formation of the aortic arch and great vessels arising from the aortic arch, without a hemodynamically significant stenosis. There is a normal origin of the brachiocephalic, left common carotid, and left subclavian arteries. Normal origins of the brachiocephalic, left common carotid, and left subclavian arteries. RIGHT CAROTID ARTERIES: Normal right common carotid artery (CCA). There is moderate atherosclerotic plaque formation with moderate narrowing of the right carotid bulb. There is extensive atherosclerotic plaque formation of the origin of the right internal carotid artery with an estimated stenosis of greater than 70%. There is atherosclerotic tortuous elongation of the cervical portion of the right internal carotid artery. Normal origin of the right external carotid artery (ECA). LEFT CAROTID ARTERIES: Normal left common carotid artery (CCA). There is extensive atherosclerotic plaque formation with severe narrowing of the carotid bulb with a hemodynamically significant stenosis. There is extensive atherosclerotic plaque formation of the origin of the left internal carotid artery with an estimated stenosis of greater than 70%. Normal visualized cervical portion of the left internal carotid artery. Normal origin of the left external carotid artery (ECA). VERTEBRAL ARTERIES: Normal bilateral vertebral arteries. No demonstrated vertebral artery thrombus or occlusion or dissection. IMPRESSION: No demonstrated large vessel occlusion 1. Head CTA: There is tortuosity with elongation of the basilar artery. There is no tip of the basilar artery aneurysm. The mock appearance is due to tortuosity and curving of the vessel at its junction with the posterior cerebral arteries. No thrombus or occlusion is seen in the basilar artery. No edema or loss of differentiation is seen in the mariia or included portion of the brainstem. If there are continued clinical concerns obtain a MRI of the brain if possible. 2. There is no demonstrated aneurysm of the [place]. No demonstrated thrombus or occlusion or hemodynamically significant stenosis of the major intracranial arteries. Fully patent and normal enhancement of the major intracranial venous sinuses, with no evidence of venous sinus thrombosis or occlusion. 3. Neck CTA: Moderate to significant atherosclerotic plaque in the bilateral carotid bulbs and origins of the ICAs resulting in at least 70% luminal stenosis. Consult vascular surgery is recommended.. 4. MRI of the brain can be obtained for small infarcts and perforating vessel disease not detected by CT. Electronically Signed: Branden Lucio MD at 15:12 [facility] ,
--- NOTE | 2024-04-03 14:28 | PN.CC_ITS ---
Objective Data Objective Data Vital Signs: Vital Signs Last response 3 Temperature 36.8 C 04/03/24 13:15 Temperature Source Core 04/03/24 13:15 Pulse Rate 54 L 04/03/24 13:15 Pulse Strength Normal (2+) 04/02/24 20:25 Respiratory Rate 14 04/03/24 13:15 Respiratory Effort Mechanically Ventilated 04/03/24 08:00 Respiratory Depth Normal 04/03/24 08:00 Respiratory Pattern Normal 04/03/24 08:00 Blood Pressure 156/76 H 04/03/24 13:15 Blood Pressure Mean 102 04/03/24 13:15 Blood Pressure Source Monitor 04/03/24 13:15 Blood Pressure Position Semi-Fowlers 04/03/24 13:15 Blood Pressure Location Left Leg 04/03/24 13:15 Pulse Ox 94 04/03/24 13:15 Oxygen Delivery Method Mechanical Ventilator 04/03/24 13:15 Oxygen Flow Rate (L/min) 4 04/02/24 10:02 Fraction of Inspired Oxygen (FIO2) 30 04/03/24 13:15 I&O: I&O Last 24 Hours 3 04/02/24 04/03/24 04/03/24 23:59 11:59 23:59 Intake Total 313.54 / 327.14 173.00 / 173.00 Output Total 305 / 305 110 / 110 Balance 8.54 / 22.14 63.00 / 63.00 I&O: Total Stay 3 04/02/24 09:46 thru 04/03/24 13:44 Intake Total 493.14 Output Total 415 Balance 78.14 Current Meds Ordered / Administered: Current meds ordered / Administered 3 Generic Name Dose Route Start Last Admin Trade Name Freq PRN Reason Stop Dose Admin Acetaminophen 650 mg 04/02/24 14:31 Acetaminophen 325 Mg Tablet GT Q6H PRN PRN Pain 1-10 Or Fever>100.7 Albuterol/Ipratropium 3 ml 04/02/24 14:31 Ipratropium/Albuterol Sulfate 3 Ml Ampul.Neb INHALATION Q4H.RT PRN shortness of breath Atorvastatin Calcium 20 mg 04/02/24 14:31 04/03/24 10:10 Atorvastatin Calcium 20 Mg Tablet GT 20 mg DAILY LINDSEY Administration Chlorhexidine Gluconate 15 ml 04/02/24 22:00 04/03/24 08:00 Chlorhexidine 15 Ml PO 15 ml BID LINDSEY Administration Chlorhexidine Gluconate 1 each 04/03/24 10:00 04/03/24 04:09 Chlorhexidine Gluc 2% Cloth 1 Each [place] TOPICAL 1 each DAILY LINDSEY Administration Famotidine 20 mg 04/03/24 10:00 04/03/24 10:10 Famotidine 20 Mg Tablet GT 20 mg DAILY LINDSEY Administration Heparin Sodium (Porcine) 5,000 unit 04/02/24 14:31 04/03/24 10:09 Heparin Injection (Vial) 5,000 Unit/Ml Vial SC 5,000 unit Q12 LINDSEY Administration Hydralazine HCl 10 mg 04/02/24 14:31 Hydralazine 20 Mg/Ml Vial IV Q4H PRN PRN SBP more than 180 mmHg Protocol Hydralazine HCl 50 mg 04/02/24 14:31 04/03/24 05:16 Hydralazine 50 Mg Tablet GT 50 mg TID LINDSEY Administration Protocol Propofol 1,000 mg in 100 mls @ 4.458 mls/hr 04/02/24 10:05 04/03/24 10:11 Diprivan CONT INF Not Given .Q12H LINDSEY Protocol 10 MCG/KG/MIN Fentanyl 100 mls @ 5 mls/hr 04/02/24 13:35 04/03/24 08:00 CONT INF 0 mcg/hr UD LINDSEY 0 mls/hr Titration Protocol 50 MCG/HR Ampicillin Sodium/Sulbactam 112 mls @ 150 mls/hr 04/02/24 14:31 04/03/24 10:11 Sodium 3 gm/ Sodium Chloride IV 150 mls/hr Q24 LINDSEY Administration Labetalol HCl 20 mg 04/02/24 14:31 04/02/24 16:12 Labetalol (Prefilled) 20 Mg/4 Ml Vial IV 20 mg Q4H PRN PRN Administration SBP >190 mmhg Sodium Chloride 10 - 40 ml 04/02/24 14:27 04/03/24 10:09 0.9% Saline Lock 10 Ml Syringe IV 20 ml UD PRN Administration SALINE FLUSH Lab / Micro Data Attestation: I reviewed the patient's lab results. 04/03/24 03:54 04/03/24 03:54 Labs: Laboratory Results - last 24 hr 04/02/24 10:12: Phosphorus 5.2 H, Magnesium 2.1 11/09/24 10:15: Sodium Cancelled, Potassium Cancelled, Chloride Cancelled, Carbon Dioxide Cancelled, Anion Gap Cancelled, BUN Cancelled, Creatinine Cancelled, Estim Creat Clear Calc Cancelled, Est GFR (MDRD) Af Amer Cancelled, Est GFR (MDRD) Non-Af Cancelled, BUN/Creatinine Ratio Cancelled, Glucose Cancelled, Calcium Cancelled, Phosphorus Cancelled, Magnesium Cancelled 04/02/24 10:30: Urine Opiates Screen NEGATIVE, Urine Methadone Screen NEGATIVE, Ur Barbiturates Screen NEGATIVE, Ur Phencyclidine Scrn NEGATIVE, Ur Amphetamines Screen NEGATIVE, MDMA (Ecstasy) Screen NEGATIVE, U Benzodiazepines Scrn NEGATIVE, Urine Cocaine Screen NEGATIVE, U Cannabinoids Screen NEGATIVE, Ur Drug Screen Comment 04/02/24 17:00: Troponin I High Sens 53 04/02/24 19:28: Troponin I High Sens 45 04/02/24 23:27: Troponin I High Sens 40 04/03/24 03:54: WBC 4.0 L, RBC 3.96 L, Hgb 10.5 L, Hct 34.6 L, MCV 87.4, MCH 26.5 L, MCHC 30.3 L, RDW Std Deviation 57.1 H, RDW Coeff of Mindy 17.9 H, Plt Count 87 L, MPV 11.9, Immature Gran % (Auto) 0.700, Neut % (Auto) 49.8, Lymph % (Auto) 25.6, [place] % (Auto) 7.0, Eos % (Auto) 14.4 H, Baso % (Auto) 2.5 H, Absolute Neuts (auto) 2.0, Absolute Lymphs (auto) 1.03, Nucleated RBC % 0, Sodium 136, Potassium 3.1 L, Chloride 99, Carbon Dioxide 28.0, Anion Gap 9, BUN 29 H, Creatinine 4.21 H, Estim Creat Clear Calc 11.20, Est GFR (MDRD) Af Amer 13 L, Est GFR (MDRD) Non-Af 11 L, BUN/Creatinine Ratio 6.9 L, Glucose 106, Calcium 9.2, B-Natriuretic Peptide 738.0 H 04/03/24 12:35: Ammonia 31.0 Micro: Microbiology 04/02/24 10:43 Sputum, Induced/Lukens Respiratory Culture - Preliminary Culture exhibits no growth. 04/02/24 10:30 Urine Catheter - [place] Urine Culture - Preliminary Culture exhibits no growth. 04/02/24 17:00 Nasal Secretion MRSA (PCR) - Final 04/02/24 14:36 Mucosa - Nasopharyngeal Respiratory Panel (PCR) - Final 04/02/24 17:05 Urine Catheter - [place] Legionella Antigen - Final 04/02/24 17:05 Urine Catheter - [place] Streptococcus pneumoniae Antigen (M - Final 04/02/24 14:36 Mucosa - Nasopharyngeal SARS-CoV-2, Influenza & RSV (PCR) - Final ABG Data ABG results: ABG 04/02/24 14:54 Specimen Type ART Sample Site L Radial pH 7.49 H Bicarbonate Actual 29.1 H Total CO2 30 Base Excess 6 H O2 Saturation 96 O2 % 30.0 ABG pCO2 38.5 ABG pO2 76 Phillip Test Positive Respiration Rate 14 O2 Delivery Device Adult Vent Vent Mode AC Tidal Volume 450.0 POC PEEP 5 Imaging Radiology Impression Chest X-Ray 04/03/24 09:18 IMPRESSION: Bilateral pleural effusions and associated airspace disease which may be atelectasis or pneumonia. Diffuse pulmonary opacities likely secondary to edema. This appears similar to the prior exam. Tubes and lines as above. Electronically Signed: Rosendo Cruz, DO at 10:13 EST , Assessment and Plan . Assessment and plan: Assessment and plan: #s/p respiratory failure - due to airway protection issues more so than gas exchange problems - concerns remain RE altered mentation- initial head CT negative but exam may warrant further imaging #ESRD on HD #altered MS - etiology indeterminate with broad DDx- CVA, sepsis, intoxication Suggest: 1. blood gases reviewed, vent adjusted as needed 2. IV hydralazine PRN target SBP < 180 mmHg 3. continue supportive measures while family deliberates over next steps- family to return tomorrow, possibly with request to extubate/ WLS Critical Care Time: 50 minutes The entirety of this encounter was done via Telemedicine Physical Exam Const Orientation / Consciousness: obtunded HEENT Mouth: endotracheal tube in place Subjective Subjective No clinical change. Reportedly family has convened and elected to defer decision on WLS 24 hours more, pending any significant input or updates from consultants
[2024-04-03] MEDS: Lactulose 20 GM/30 ML UDC GT (15:17)
--- NOTE | 2024-04-03 17:45 | NURSING ---
Justina from [facility] called, requested information given. [facility] will no longer follow pt. please all TOD.
--- NOTE | 2024-04-03 18:40 | PN.RENAL_ITS ---
Subjective Subjective Following for ESRD. Decision has been made to terminally extubate the patient. She will be transitioning to MEDICAL ASSISTING PROGRAM DIRECTOR today. Objective Data Objective Data Vital Signs: Vital Signs Temp Pulse Resp BP Pulse Ox O2 Del Method O2 Flow Rate 98.5 F 52 L 14 152/69 H 95 Mechanical Ventilator 4 04/03/24 18:00 04/03/24 18:00 04/03/24 18:00 04/03/24 18:00 04/03/24 18:00 04/03/24 18:00 04/02/24 10:02 FiO2 30 04/03/24 18:00 Oxygen Flow Rate (L/min) 4 Oxygen Delivery Method Mechanical Ventilator Weight: 72.1 kg Body Mass Index (BMI) 25.5 Intake & Output: Intake and Output for Last 24 Hours 04/01/24 04/02/24 04/03/24 23:59 23:59 23:59 Intake Total 320.14 / 327.14 233.00 / 233.00 Output Total 305 / 305 210 / 210 Balance 15.14 / 22.14 23.00 / 23.00 Lab / Micro Data 04/03/24 03:54 04/03/24 03:54 Labs: Laboratory Results - last 24 hr 04/02/24 19:28: Troponin I High Sens 45 04/02/24 23:27: Troponin I High Sens 40 04/03/24 03:54: WBC 4.0 L, RBC 3.96 L, Hgb 10.5 L, Hct 34.6 L, MCV 87.4, MCH 26.5 L, MCHC 30.3 L, RDW Std Deviation 57.1 H, RDW Coeff of Mindy 17.9 H, Plt Count 87 L, MPV 11.9, Immature Gran % (Auto) 0.700, Neut % (Auto) 49.8, Lymph % (Auto) 25.6, [place] % (Auto) 7.0, Eos % (Auto) 14.4 H, Baso % (Auto) 2.5 H, Absolute Neuts (auto) 2.0, Absolute Lymphs (auto) 1.03, Nucleated RBC % 0, Sodium 136, Potassium 3.1 L, Chloride 99, Carbon Dioxide 28.0, Anion Gap 9, BUN 29 H, Creatinine 4.21 H, Estim Creat Clear Calc 11.20, Est GFR (MDRD) Af Amer 13 L, Est GFR (MDRD) Non-Af 11 L, BUN/Creatinine Ratio 6.9 L, Glucose 106, Calcium 9.2, B-Natriuretic Peptide 738.0 H 04/03/24 12:35: Ammonia 31.0 Micro: Microbiology 04/02/24 10:43 Sputum, Induced/Lukens Gram Stain - Final 04/02/24 10:43 Sputum, Induced/Lukens Respiratory Culture - Preliminary Culture exhibits no growth. 04/02/24 10:30 Urine Catheter - [place] Urine Culture - Preliminary Culture exhibits no growth. 04/02/24 17:00 Nasal Secretion MRSA (PCR) - Final 04/02/24 14:36 Mucosa - Nasopharyngeal Respiratory Panel (PCR) - Final 04/02/24 17:05 Urine Catheter - [place] Legionella Antigen - Final 04/02/24 17:05 Urine Catheter - [place] Streptococcus pneumoniae Antigen (M - Final 04/02/24 14:36 Mucosa - Nasopharyngeal SARS-CoV-2, Influenza & RSV (PCR) - Final Radiography Diagnostic Testing: Radiology Impression Chest X-Ray 04/03/24 09:18 IMPRESSION: Bilateral pleural effusions and associated airspace disease which may be atelectasis or pneumonia. Diffuse pulmonary opacities likely secondary to edema. This appears similar to the prior exam. Tubes and lines as above. Electronically Signed: Rosendo Cruz DO at 10:13 EST , Head/Neck CTA 04/03/24 11:50 IMPRESSION: 1. No visualized dense artery sign in the MCA or basilar artery territories. No visualized sulcal effacement or loss of gonzales-white differentiation to indicate acute infarction. No extra-axial fluid collection or midline shift is present. STUDY: CTA HEAD AND NECK WITH CONTRAST REASON FOR EXAM: Female, 78 years old. unresponsive, r/o basilar art occlusion RADIATION DOSAGE (If Supplied By Facility): CTDIvol = ( 32.26 ) mGy, DLP = ( 1554.60 ) mGycm TECHNIQUE: CT angiography was performed with a multi-detector CT scanner. Data acquisition was obtained from the skull base through the vertex following intravenous administration of IV 75mL Isovue-370. MIP images were reconstructed from the axial data set. Post-processing of the angiographic images was performed, with multiplanar reformation and 3D reconstruction. Individualized dose optimization techniques were used for this CT. COMPARISON: Head CT dated April 02, 2024 FINDINGS: Normal bilateral petrous carotid arteries. There is calcified plaque formation of the right cavernous carotid artery, with a mild stenosis (less than 50%). There is calcified plaque formation of the left cavernous carotid artery, with a mild stenosis (less than 50%). Normal right A1 segments of the anterior cerebral artery. Normal left A1 segments of the anterior cerebral artery. Normal intact anterior communicating artery (ACOM). Normal bilateral A2 segments of the anterior cerebral arteries. Normal right M1 and M2 segments of the middle cerebral arteries, with a normal M1 bifurcation. Normal left M1 and M2 segments of the middle cerebral arteries, with a normal M1 bifurcation. Normal right posterior communicating artery (PCOM). There is non-visualization of the left posterior communicating artery (PCOM). Normal bilateral vertebral arteries. There is tortuosity with elongation of the basilar artery. There is no tip of the basilar artery aneurysm. The mock appearance is due to tortuosity and curving of the vessel at its junction with the posterior cerebral arteries. No thrombus or occlusion is seen in the basilar artery. The visualized bilateral superior cerebellar (SCA) arteries are normal. Normal bilateral P1, P2 and visualized P3 segments of the posterior cerebral arteries. There is no demonstrated aneurysm of the [place]. No demonstrated thrombus or occlusion or hemodynamically significant stenosis of the major intracranial arteries. Fully patent and normal enhancement of the major intracranial venous sinuses, with no evidence of venous sinus thrombosis or occlusion. NECK CTA: AORTIC ARCH: There is atherosclerotic calcific plaque formation of the aortic arch and great vessels arising from the aortic arch, without a hemodynamically significant stenosis. There is a normal origin of the brachiocephalic, left common carotid, and left subclavian arteries. Normal origins of the brachiocephalic, left common carotid, and left subclavian arteries. RIGHT CAROTID ARTERIES: Normal right common carotid artery (CCA). There is moderate atherosclerotic plaque formation with moderate narrowing of the right carotid bulb. There is extensive atherosclerotic plaque formation of the origin of the right internal carotid artery with an estimated stenosis of greater than 70%. There is atherosclerotic tortuous elongation of the cervical portion of the right internal carotid artery. Normal origin of the right external carotid artery (ECA). LEFT CAROTID ARTERIES: Normal left common carotid artery (CCA). There is extensive atherosclerotic plaque formation with severe narrowing of the carotid bulb with a hemodynamically significant stenosis. There is extensive atherosclerotic plaque formation of the origin of the left internal carotid artery with an estimated stenosis of greater than 70%. Normal visualized cervical portion of the left internal carotid artery. Normal origin of the left external carotid artery (ECA). VERTEBRAL ARTERIES: Normal bilateral vertebral arteries. No demonstrated vertebral artery thrombus or occlusion or dissection. IMPRESSION: No demonstrated large vessel occlusion 1. Head CTA: There is tortuosity with elongation of the basilar artery. There is no tip of the basilar artery aneurysm. The mock appearance is due to tortuosity and curving of the vessel at its junction with the posterior cerebral arteries. No thrombus or occlusion is seen in the basilar artery. No edema or loss of differentiation is seen in the mariia or included portion of the brainstem. If there are continued clinical concerns obtain a MRI of the brain if possible. 2. There is no demonstrated aneurysm of the [place]. No demonstrated thrombus or occlusion or hemodynamically significant stenosis of the major intracranial arteries. Fully patent and normal enhancement of the major intracranial venous sinuses, with no evidence of venous sinus thrombosis or occlusion. 3. Neck CTA: Moderate to significant atherosclerotic plaque in the bilateral carotid bulbs and origins of the ICAs resulting in at least 70% luminal stenosis. Consult vascular surgery is recommended.. 4. MRI of the brain can be obtained for small infarcts and perforating vessel disease not detected by CT. Electronically Signed: Branden Lucio MD at 15:12 EST , Physical Exam Narrative General appearance: Ill-appearing on ventilator HEENT: Normocephalic, atraumatic. Intubated. PERRLA. Mucous membrane moist. Neck: Supple, no JVD. Heart: Normal S1, S2. No rubs, murmurs or gallops. Lungs: Coarse breath sound bilaterally. Abdomen: Normal bowel sounds, soft, nontender, no guarding or rebound. Extremities: No clubbing, cyanosis or edema. Full passive range of motion. Skin: Warm and dry, no rash. Neurologic: No focal deficits. Assessment & Plan Assessment/Plan (1) ESRD (end stage renal disease) on dialysis: (2) HTN (hypertension): (3) Acute hypoxemic respiratory failure: PLAN: Plan Impression/Plan: The patient is a 70-year-old female with past history of ESRD, hypertension, and hyperlipidemia. Patient presented to the hospital today on 04/02/2024 after she was found at [facility] to be unresponsive. Patient was found to have severe hypertension with BP of 199/105 in ED. The patient is admitted to ICU for treatment of acute hypoxic respiratory failure. She has been covered with an antibiotic for possible pneumonia. She was intubated due to inability to protect airway. Well Services Operator asked see the patient because of ESRD. ESRD. The patient dialyzes on MTTF at [facility]. The patient was dialyzed yesterday on 04/01/2024 prior to presentation to hospital. She does not appear to be volume overloaded. Patient is not hyperkalemic or acidotic. Therefore, there is no need for dialysis today. Given decision to transition to MEDICAL ASSISTING PROGRAM DIRECTOR, we will not be dialyzing patient tomorrow. Hypertension. Patient initially presented with high BP. Current BP is under control on carvedilol and hydralazine. Will continue to monitor BP. Acute hypoxic respiratory failure. Patient is currently intubated. Patient is being treated with Unasyn and vancomycin for possible HAP and aspiration pneumonia.
[2024-04-03] MEDS: Morphine 2 MG/ML Syringe IV ×2 (18:57→22:22)
[2024-04-03] MEDS: LORazepam 2 MG/ML Syringe IV ×2 (18:58→22:22)
[2024-04-04 00:12] VITALS: BMI 26.1
[2024-04-04] MEDS: LORazepam 2 MG/ML Syringe IV ×8 (00:19→17:19)
[2024-04-04] MEDS: Morphine 2 MG/ML Syringe IV ×8 (00:19→17:19)
[2024-04-04] MEDS: 0.9% Saline Lock 10 ML Syringe IV ×2 (00:24→06:18)
[2024-04-04 06:00] VITALS: BP 116/46; PULSE 74; RESP 17; TEMP 36.8; O2SAT 53
--- NOTE | 2024-04-04 07:28 | PN.HOSP_ITS ---
Reason for Visit Reason for Visit: Diagnoses Essential (primary) hypertension (04/02/24) Acute respiratory failure with hypoxia (04/02/24) End stage renal disease (04/02/24) Other symptoms and signs involving cognitive functions and awareness (04/02/24) Dependence on renal dialysis (04/02/24) Subjective Subjective Patient is a 78-year-old female admitted with unresponsive episode. She was intubated in the emergency department to protect her airway and subsequently admitted to the intensive care unit. Patient was weaned off the vent CODE STATUS changed to DNR CC comfort care measures instituted Objective Data Objective Data Vital Signs: Vital Signs Temp Pulse Resp BP Pulse Ox O2 Del Method O2 Flow Rate 98.2 F 74 17 116/46 L 53 Room Air 4 04/04/24 06:00 04/04/24 06:00 04/04/24 06:00 04/04/24 06:00 04/04/24 06:00 04/04/24 06:00 04/02/24 10:02 FiO2 30 04/03/24 18:00 Oxygen Flow Rate (L/min) 4 Oxygen Delivery Method Room Air Weight: 73.5 kg Body Mass Index (BMI) 26.1 Intake & Output: Intake and Output for Last 24 Hours 04/02/24 04/03/24 04/04/24 23:59 23:59 23:59 Intake Total 320.14 / 327.14 345.00 / 345.00 Output Total 305 / 305 210 / 210 Balance 15.14 / 22.14 135.00 / 135.00 Lab / Micro Data 04/03/24 03:54 04/03/24 03:54 Labs: Laboratory Results - last 24 hr 04/03/24 03:54: B-Natriuretic Peptide 738.0 H 04/03/24 12:35: Ammonia 31.0 Micro: Microbiology 04/02/24 10:43 Sputum, Induced/Lukens Gram Stain - Final 04/02/24 10:43 Sputum, Induced/Lukens Respiratory Culture - Preliminary Culture exhibits no growth. 04/02/24 10:30 Urine Catheter - [place]ullivan Urine Culture - Preliminary Culture exhibits no growth. 04/02/24 17:00 Nasal Secretion MRSA (PCR) - Final 04/02/24 14:36 Mucosa - Nasopharyngeal Respiratory Panel (PCR) - Final 04/02/24 17:05 Urine Catheter - [place] Legionella Antigen - Final 04/02/24 17:05 Urine Catheter - [place] Streptococcus pneumoniae Antigen (M - Final 04/02/24 14:36 Mucosa - Nasopharyngeal SARS-CoV-2, Influenza & RSV (PCR) - Final Radiography Diagnostic Testing: Radiology Impression Chest X-Ray 04/03/24 09:18 IMPRESSION: Bilateral pleural effusions and associated airspace disease which may be atelectasis or pneumonia. Diffuse pulmonary opacities likely secondary to edema. This appears similar to the prior exam. Tubes and lines as above. Electronically Signed: Rosendo Cruz DO at 10:13 EST , Head/Neck CTA 04/03/24 11:50 IMPRESSION: 1. No visualized dense artery sign in the MCA or basilar artery territories. No visualized sulcal effacement or loss of gonzales-white differentiation to indicate acute infarction. No extra-axial fluid collection or midline shift is present. STUDY: CTA HEAD AND NECK WITH CONTRAST REASON FOR EXAM: Female, 78 years old. unresponsive, r/o basilar art occlusion RADIATION DOSAGE (If Supplied By Facility): CTDIvol = ( 32.26 ) mGy, DLP = ( 1554.60 ) mGycm TECHNIQUE: CT angiography was performed with a multi-detector CT scanner. Data acquisition was obtained from the skull base through the vertex following intravenous administration of IV 75mL Isovue-370. MIP images were reconstructed from the axial data set. Post-processing of the angiographic images was performed, with multiplanar reformation and 3D reconstruction. Individualized dose optimization techniques were used for this CT. COMPARISON: Head CT dated April 02, 2024 FINDINGS: Normal bilateral petrous carotid arteries. There is calcified plaque formation of the right cavernous carotid artery, with a mild stenosis (less than 50%). There is calcified plaque formation of the left cavernous carotid artery, with a mild stenosis (less than 50%). Normal right A1 segments of the anterior cerebral artery. Normal left A1 segments of the anterior cerebral artery. Normal intact anterior communicating artery (ACOM). Normal bilateral A2 segments of the anterior cerebral arteries. Normal right M1 and M2 segments of the middle cerebral arteries, with a normal M1 bifurcation. Normal left M1 and M2 segments of the middle cerebral arteries, with a normal M1 bifurcation. Normal right posterior communicating artery (PCOM). There is non-visualization of the left posterior communicating artery (PCOM). Normal bilateral vertebral arteries. There is tortuosity with elongation of the basilar artery. There is no tip of the basilar artery aneurysm. The mock appearance is due to tortuosity and curving of the vessel at its junction with the posterior cerebral arteries. No thrombus or occlusion is seen in the basilar artery. The visualized bilateral superior cerebellar (SCA) arteries are normal. Normal bilateral P1, P2 and visualized P3 segments of the posterior cerebral arteries. There is no demonstrated aneurysm of the [place]. No demonstrated thrombus or occlusion or hemodynamically significant stenosis of the major intracranial arteries. Fully patent and normal enhancement of the major intracranial venous sinuses, with no evidence of venous sinus thrombosis or occlusion. NECK CTA: AORTIC ARCH: There is atherosclerotic calcific plaque formation of the aortic arch and great vessels arising from the aortic arch, without a hemodynamically significant stenosis. There is a normal origin of the brachiocephalic, left common carotid, and left subclavian arteries. Normal origins of the brachiocephalic, left common carotid, and left subclavian arteries. RIGHT CAROTID ARTERIES: Normal right common carotid artery (CCA). There is moderate atherosclerotic plaque formation with moderate narrowing of the right carotid bulb. There is extensive atherosclerotic plaque formation of the origin of the right internal carotid artery with an estimated stenosis of greater than 70%. There is atherosclerotic tortuous elongation of the cervical portion of the right internal carotid artery. Normal origin of the right external carotid artery (ECA). LEFT CAROTID ARTERIES: Normal left common carotid artery (CCA). There is extensive atherosclerotic plaque formation with severe narrowing of the carotid bulb with a hemodynamically significant stenosis. There is extensive atherosclerotic plaque formation of the origin of the left internal carotid artery with an estimated stenosis of greater than 70%. Normal visualized cervical portion of the left internal carotid artery. Normal origin of the left external carotid artery (ECA). VERTEBRAL ARTERIES: Normal bilateral vertebral arteries. No demonstrated vertebral artery thrombus or occlusion or dissection. IMPRESSION: No demonstrated large vessel occlusion 1. Head CTA: There is tortuosity with elongation of the basilar artery. There is no tip of the basilar artery aneurysm. The mock appearance is due to tortuosity and curving of the vessel at its junction with the posterior cerebral arteries. No thrombus or occlusion is seen in the basilar artery. No edema or loss of differentiation is seen in the mariia or included portion of the brainstem. If there are continued clinical concerns obtain a MRI of the brain if possible. 2. There is no demonstrated aneurysm of the [place]. No demonstrated thrombus or occlusion or hemodynamically significant stenosis of the major intracranial arteries. Fully patent and normal enhancement of the major intracranial venous sinuses, with no evidence of venous sinus thrombosis or occlusion. 3. Neck CTA: Moderate to significant atherosclerotic plaque in the bilateral carotid bulbs and origins of the ICAs resulting in at least 70% luminal stenosis. Consult vascular surgery is recommended.. 4. MRI of the brain can be obtained for small infarcts and perforating vessel disease not detected by CT. Electronically Signed: Branden Lucio MD at 15:12 [facility] Reading Location ID and State: [address] [place] [address] , Service support , Physical Exam Narrative GENERAL: Patient in no apparent distress HEENT: Atraumatic; normocephalic EYES; Anicteric, Normal Conjunctiva NECK; supple, normal thyroid, RESPIRATORY: Diminished to auscultation CARDIOVASCULAR: Regular S1 S2, GI: soft, normoactive bowel sounds, : No Renal angle tenderness; EXTREMITIES: No edema, no clubbing, MUSCULOSKELETAL: no muscle wasting NEURO: Unresponsive SKIN: No Rash Assessment & Plan Assessment/Plan (1) Unresponsive: PLAN: Plan Patient is a 78-year-old female admitted with unresponsive episode. She was intubated in the emergency department to protect her airway and subsequently admitted to the intensive care unit 1. Acute encephalopathy ? Possibly due to combination of patient aspiration pneumonia and acute hypoxic respiratory failure. CT of the brain obtained unremarkable. MRI and EEG ordered and consultation placed to teleneuro, consultation MRI and EEG discontinued after patient CODE STATUS was changed to DNR CC 2. Acute hypoxic respiratory failure ? Secondary to combination of pulmonary edema and suspected pneumonia . Patient was intubated in the ED consult placed to concrete paver for vent management. Patient was terminally weaned off the vent on 04/03/2020 3. Pneumonia ? Suspected aspiration pneumonia patient started on Unasyn. Cultures have remained negative to date 4.Acute congestive heart failure ? Type unspecified. Chest x-ray on admission demonstrated bilateral pulmonary edema. Fluid management per dialysis. Plan was to obtain a 2D echo to specify type however given patient CODE STATUS be changed to DNR CCA echo which was ordered was subsequently discontinued 5. End-stage renal disease ? Patient is on dialysis on Mondays and Thursday. Case was discussed with patient's daughter dialysis to be discontinued 6. Recent C. difficile colitis ? Patient managed with p.o. vancomycin continue 7. Accelerated hypertension -Patient blood pressure on admission was was as high as 199/105. Patient blood pressure has since improved 8. Dyslipidemia ? Patient is on atorvastatin 9. GERD ? Patient is on famotidine 10. Allergic rhinitis ? Patient is on fluticasone 11. DVT prophylaxis ? Subcu heparin Time spent in the patient's overall evaluation,decision-making process, review of diagnostic data, adjustment of management, discussion with other providers, nursing nursing and ancillary staff involved in patient's care documentation, 50 Minutes Charges/Coding Visit Charges Inpatient E&M: [address] [facility] Hosp L3
--- NOTE | 2024-04-04 09:31 | CASEMGMT ---
SW was informed that a referral needs made to Hospice. SW spoke with patient's daughters Blanka and Evelin. Introduced self and role at [facility]. Both daughters confirmed they would like to talk with hospice. They would like the patient to go to the inpatient Hospice unit. ZEYNEP explained SW will make a referral and someone from Hospice will call family to set up a meeting. Blanka asked that they call her. ZEYNEP called [facility] and spoke with Lisa regarding referral. SW also faxed information. Plan: Possibly inpatient Hospice unit pending evaluation. Nichol Vasquez GRIPS MICHELLE
[2024-04-04 11:34] VITALS: BP 103/47; PULSE 89; RESP 17; TEMP 35.9; O2SAT 64
[2024-04-04] MEDS: Atropine Sulfate 1% 2 ml Bottle 4 DRP PO ×2 (11:40→14:45)
--- NOTE | 2024-04-04 14:04 | CASEMGMT ---
Discharge Planning [facility] updated that pt is discharging to [facility]. Erika Jackson DC Planning Asst.
--- NOTE | 2024-04-04 15:25 | CHAPLAIN ---
Type of Pastoral Visit _x__ Initial Visit ___ Follow-up Visit ___ On-call Visit ___ General Patient Visit ___ Spiritual Assessment _x__ Family Conference ___ Bereavement ___ Rapid Response ___ Code Blue ___ Other (describe below) Pastoral Care Referral From ___ Patient _x__ Family ___ Nurse ___ Physician ___ Cancer Registrar ___ Vehicle Body Sander ___ Other (describe below) Sacrament/Intervention _x__ Active listening ___ Anointing ___ Methodist ___ Bereavement ___ Communion ___ Elis exploration ___ _x__ Life review _x__ Prayer ___ Reconciliation ___ Sacrament of Sick _x__ Supportive presence ___ Wedding ___ Other (describe below) Pastoral Comments patient is unresponsive and is resting in the bed without appearance of discomfort or pain; two daughters are in the room; daughters answer questions; pt are given support and presence with time to talk about their mother; pt is not a lutheran person but daughters welcome a prayer to be spoken for her; pt will be moved to hospice unit if all approvals given today; offer of support as desired during this time
--- NOTE | 2024-04-04 17:27 | NURSING ---
Report given to [facility]
--- NOTE | 2024-04-05 07:02 | PCM.DC.SUM ---
Providers Date of Admission: 04/02/24 Date of Discharge: 04/04/24 Primary Care Physician: Dr. Alex Avila MD Consultations 04/04/24 08:02 Consult: Hospice / Palliative Care Routine Consulting Provider: [facility] Reason for Consult: End of life care, terminally extubatee 04/03 EMERGENT Consult: No MD Notified: Yes Date Notified: 04/04/24 Time Notified: 08:03 Method of Notification: Verbal Reason For Visit: UNRESPONSIVE Diagnosis Discharge Diagnosis (1) Unresponsive: Status: Acute Code(s): R41.89 - Other symptoms and signs involving cognitive functions and awareness Plan Patient is a 78-year-old female admitted with unresponsive episode. She was intubated in the emergency department to protect her airway and subsequently admitted to the intensive care unit 1. Acute encephalopathy ? Possibly due to combination of patient aspiration pneumonia and acute hypoxic respiratory failure. CT of the brain obtained unremarkable. MRI and EEG ordered and consultation placed to teleneuro, consultation MRI and EEG discontinued after patient CODE STATUS was changed to DNR CC 2. Acute hypoxic respiratory failure ? Secondary to combination of pulmonary edema and suspected pneumonia . Patient was intubated in the ED consult placed to application support for vent management. Patient was terminally weaned off the vent on 04/03/2020 3. Pneumonia ? Suspected aspiration pneumonia patient started on Unasyn. Cultures have remained negative to date 4.Acute congestive heart failure ? Type unspecified. Chest x-ray on admission demonstrated bilateral pulmonary edema. Fluid management per dialysis. Plan was to obtain a 2D echo to specify type however given patient CODE STATUS be changed to DNR CCA echo which was ordered was subsequently discontinued 5. End-stage renal disease ? Patient is on dialysis on Mondays and Thursday. Case was discussed with patient's daughter dialysis to be discontinued 6. Recent C. difficile colitis ? Patient managed with p.o. vancomycin continue 7. Accelerated hypertension -Patient blood pressure on admission was was as high as 199/105. Patient blood pressure has since improved 8. Dyslipidemia ? Patient is on atorvastatin 9. GERD ? Patient is on famotidine 10. Allergic rhinitis ? Patient is on fluticasone 11. DVT prophylaxis ? Subcu heparin Held discussion with patient's family regarding her above condition. Decision was made for patient to be discharged to hospice in a medical facility Medications at Discharge Home Medications atorvastatin 20 mg tablet 20 mg PO DAILY CHOLESTEROL 04/02/24 carvedilol 6.25 mg tablet 6.25 mg PO BID HYPERTENSION 04/02/24 cetirizine 10 mg tablet (24Hour Allergy) 10 mg PO DAILY ALLERGIES 04/02/24 famotidine 20 mg tablet 20 mg PO BID GERD 04/02/24 fluticasone propionate 50 mcg/actuation nasal spray,suspension (24 Hour Allergy Relief) 2 spray intranasal DAILY PRN allergy symptoms 04/02/24 gabapentin 100 mg capsule 200 mg PO TID NEUROPATHY 04/02/24 hydralazine 50 mg tablet 50 mg PO TID HYPERTENSION 04/02/24 vancomycin 125 mg capsule (Vancocin) 125 mg PO Q6H C DIFF 04/02/24 vitamin B complex-vitamin C-folic acid 0.8 mg tablet (Dialyvite 800) 1 tab PO DAILY SUPPLEMENT 04/02/24 Hospital Course Summary of Care Provided Minutes Spent on Discharge: 50 Physical Exam Narrative GENERAL: Patient in no apparent distress HEENT: Atraumatic; normocephalic EYES; Anicteric, Normal Conjunctiva NECK; supple, normal thyroid, RESPIRATORY: Diminished to auscultation CARDIOVASCULAR: Regular S1 S2, GI: soft, normoactive bowel sounds, : No Renal angle tenderness; EXTREMITIES: No edema, no clubbing, MUSCULOSKELETAL: no muscle wasting NEURO: Unresponsive SKIN: No Rash Weight / BMI Weight Weight: 73.5 kg Body Mass Index (BMI) 26.1 ABG / Lab / Microbiology Data 04/03/24 03:54 04/03/24 03:54 Microbiology: Microbiology 04/02/24 10:43 Sputum, Induced/Lukens Gram Stain - Final 04/02/24 10:43 Sputum, Induced/Lukens Respiratory Culture - Final Culture exhibits no growth. 04/02/24 10:30 Urine Catheter - [place] Urine Culture - Final Culture exhibits no growth. 04/02/24 10:12 Blood Culture (Wb) - Right Forearm Blood Culture - Preliminary No growth in 48 hours. 04/02/24 17:00 Nasal Secretion MRSA (PCR) - Final 04/02/24 14:36 Mucosa - Nasopharyngeal Respiratory Panel (PCR) - Final 04/02/24 17:05 Urine Catheter - [place] Legionella Antigen - Final 04/02/24 17:05 Urine Catheter - [place] Streptococcus pneumoniae Antigen (M - Final 04/02/24 14:36 Mucosa - Nasopharyngeal SARS-CoV-2, Influenza & RSV (PCR) - Final D/C Instructions Discharge Diet: No restrictions Meaningful Use Info Meaningful Use Meaningful Use Diagnoses (Choose all that apply): None applicable Ischemic Stroke Statin Dosing Therapy Reference: STATIN DOSE THERAPY REFERENCE: * Patients > 75 years receive moderate or high dose statin therapy. * Patients 75 years or YOUNGER should receive HIGH intensity statin dose unless contraindicated. You will be required to document reason for non-treatment if statin daily dose does not meet guidelines. HIGH DOSE STATIN THERAPY DAILY Atorvastatin > than or = to 40 mg Rosuvastatin > than or = to 20 mg Amlodipine + Atorvastatin > than or = to 2.5/40 mg Ezetimibe + Simvastatin 10/80 mg Simvastatin 80mg Discharge Plan Admission Admit Date/Time: 04/02/24 12:39 Attending Provider: Allan Carlos Primary Care Provider: Alex Avila Consulting Providers: Ray Marie; Allan Celis; Keily Fernandez; Sarah Gerardo; Evelin Joya; Coleen Gaxiola MANAGER FACILITY; Joanna Duffy Discharge Orders/Prescriptions Prescriptions: No Action atorvastatin 20 mg tablet 20 mg PO DAILY cetirizine [24Hour Allergy] 10 mg tablet 10 mg PO DAILY fluticasone propionate [24 Hour Allergy Relief] 50 mcg/actuation spray,suspension 2 spray intranasal DAILY PRN (Reason: allergy symptoms) Rx Instructions: administer into each nostril Dialyvite 800 0.8 mg tablet 1 tab PO DAILY carvedilol 6.25 mg tablet 6.25 mg PO BID famotidine 20 mg tablet 20 mg PO BID gabapentin 100 mg capsule 200 mg PO TID hydralazine 50 mg tablet 50 mg PO TID vancomycin [Vancocin] 125 mg capsule 125 mg PO Q6H Rx Instructions: ORDER 03/06/24 Referrals / Follow Up: Alex Avila MD [Primary Care Provider] - Disposition Disposition (needs filled in before D/C Order can be placed): Hospice in Medical Facility Charges/Coding Visit Charges Inpatient E&M: 74477 Disch Hosp >30min
== END 2024-04-04 17:45 | disposition hospice, inpatient (51) | DRG 208 ==
LOC: ED 10:35 → ICU 12:56
PROVIDERS: Admitting Provider Internal Medicine; Emergency Provider Emergency Medicine; PCP Family Medicine; Visit Provider Internal Medicine
DX: J69.0 Pneumonitis due to inhalation of food and vomit (principal); N18.6 End stage renal disease; J96.01 Acute respiratory failure with hypoxia; I13.2 Hypertensive heart and chronic kidney disease with heart failure and with stage 5 chronic kidney disease, or end stage renal disease; G93.40 Encephalopathy, unspecified; I50.9 Heart failure, unspecified; E78.5 Hyperlipidemia, unspecified; Z99.2 Dependence on renal dialysis; K21.9 Gastro-esophageal reflux disease without esophagitis; I16.0 Hypertensive urgency; Z79.51 Long term (current) use of inhaled steroids; R41.89 Other symptoms and signs involving cognitive functions and awareness; R41.82 Altered mental status, unspecified; Z79.899 Other long term (current) drug therapy
CPT/HCPCS: 31500; 31720; 36600; 51702; 70450; 70496; 70498; 71045; 71250; 80048; 80076; 80307; 81001; 82140; 82550; 82803; 82962; 83605; 83735; 83880; 84100; 84478; 84484; 85025; 85610; 85730; 87040; 87070; 87086; 87205; 87449; 87631; 87633; 87641; 93005; 94002; 94003; 95819; 97802; 97803; 99252; 99285; Q9967; A4216; G0463; J0295